=== PATIENT | male | born 1940 | race Caucasian/White ===

== ENCOUNTER 2022-11-19 12:18 | Inpatient (IN) | payer MEDICARE, SELFPAY ==
[2022-11-19] VITALS (55 sets, daily range): BP systolic 76–104; BP diastolic 48–62; PULSE 80–124; RESP 14–36; TEMP 36.6–37.1; O2SAT 80–100
--- NOTE | ~2022-11-19 | XR_ITS ---
Portable chest x-ray Comparison: 11/19/2022 Clinical History: Pneumonia Findings: Extensive right lung consolidation, especially the right lung apex is again present. There is mild haziness in the left perihilar region. Extensive calcified pleural plaques are again present . Cardiomediastinal silhouette is stable. Bones and soft tissues are unremarkable. Impression: Extensive right lung consolidation, especially right lung apex, as well as mild haziness left perihil ar region. Findings suggest bilateral pneumonia, worst at the right lung apex. Underlying neoplasm ca nnot be completely excluded radiographically. Suspect also pleural plaques are again present. Reviewed, dictated and finalized at location . Impression: Extensive right lung consolidation, especially right lung apex, as well as mild haziness left perihilar region. Findings suggest bilateral pneumonia, worst at the right lung apex. Underlying neoplasm cannot be completely excluded radiogr aphically. Suspect also pleural plaques are again present.
--- NOTE | ~2022-11-19 | US_ITS ---
Renal-Bladder ultrasound Clinical History: Acute kidney injury Technique: Real-time sonographic imaging of the kidneys and urinary bladder was performed. Findings: The right kidney measures 10.4 cm in length and the left kidney measures 12.5 cm. There is no hydronephrosis or renal calculus identified. Renal cortical echogenicity is within normal limits. No renal mass lesion is identified. The urinary bladder is moderately distended at the time of this exam. No intraluminal echoes are iden tified. No abnormal wall thickening is seen. Prostate gland is enlarged. Impression: Unremarkable ultrasound of the kidneys and urinary bladder. Enlarged prostate gland. Reviewed, dictated and finalized at location . Impression: Unremarkable ultrasound of the kidneys and urinary bladder. Enlarged prostate gland.
--- NOTE | ~2022-11-19 | XR_ITS ---
Clinical Indication: Cough, bloody sputum PA and lateral views of the chest: Comparison: None Findings: There is extensive right upper lobe consolidation, especially the right lung apex, compatib le with pneumonia. Calcified pleural plaques are present bilaterally. No pleural effusion. Cardiomedi astinal silhouette is within normal limits. Bones and soft tissues are unremarkable. Impression: Extensive right upper lobe presumed pneumonia. Follow-up to radiographic resolution is advised. Reviewed, dictated and finalized at location . Impression: Extensive right upper lobe presumed pneumonia. Follow-up to radiographic resolu tion is advised.
--- NOTE | ~2022-11-19 | US_ITS ---
Limited Abdominal Sonogram: Real-time sonographic imaging of the right upper quadrant was performed. Clinical History: Abnormal LFTs Findings: The liver appears normal with no evidence of mass lesion or bile duct dilatation. Main por sunny vein demonstrates normal direction of flow. The gallbladder is well distended, and appears normal with no evidence of gallstone or wall thickening. The common bile duct measures 3 mm. The visualize d pancreas, aorta, and IVC are unremarkable. Impression: No significant abnormality seen. Reviewed, dictated and finalized at location . Impression: No significant abnormality seen.
--- NOTE | 2022-11-19 12:34 | ECG_ITS ---
Measurements Intervals [place] Rate: 120 P: 64 ME: 170 QRS: 56 QRSD: 139 T: 5 QT: 328 QTc: 464 Interpretive Statements SINUS TACHYCARDIA RIGHT BUNDLE BRANCH BLOCK BASELINE ARTIFACT- I, II, III, AVL, AVF, V4-V6 ABNORMAL ECG NO PREVIOUS ECG AVAILABLE FOR COMPARISON Electronically Signed On 11-19-2022 13:03:43 CDT by Luiz Alonso D.O.
[2022-11-19] MEDS: SODIUM CHLORIDE 0.9% IV 1,000 ML 999 ML IV CONT ×2 (12:51→14:22)
[2022-11-19 12:57] LABS: Basophils Absolute Auto 0.1 K/mm3 (0.0-0.1); Basophils Percent Auto 0.4 % (0.2-1.2); Eosinophils Percent Auto 0.1 % (0-4.4); Hematocrit 37.3 % (42.0-52.0); Hemoglobin 12.4 g/dL (14.0-18.0); Immature Granulocyte Absolute 0.27 K/mm3 (0.00-0.031); Immature Granulocyte Percent A 1.4 % (0-0.5); Lymphocytes Absolute Auto 1.01 K/mm3 (0.9-3.2); Lymphocytes Percent Auto 5.2 % (18.3-44.2); Mean Corpuscular HGB Conc 33.2 g/dl (32-36); Mean Corpuscular Hemoglobin 28.1 pg (26-34); Mean Corpuscular Volume 84.4 fl (80-100); Mean Platelet Volume 10.7 fl (7.4-10.4); Monocytes Absolute Auto 1.8 K/mm3 (0.1-0.6); Monocytes Percent Auto 9.4 % (2.6-8.5); Neutrophils Absolute Auto 16.1 K/mm3 (1.3-6.7); Neutrophils Percent Auto 83.5 % (45.5-73.1); Platelet Count Result 177 k/mm3 (150-375); Red Blood Count 4.42 M/mm3 (4.6-6.20); Red Cell Distribution Width 14.6 % (11.5-14.5); White Blood Count 19.3 K/mm3 (4.5-10.0)
[2022-11-19 13:10] LABS: Alanine Aminotransferase 30 U/L (6-50); Albumin Level 3.8 g/dL (3.5-5.1); Alkaline Phosphatase 111 U/L (38-126); Anion Gap 8 mmol/L (8-16); Aspartate Amino Transferase 44 U/L (17-59); Bilirubin,Total 1.7 mg/dL (0.2-1.3); Blood Urea Nitrogen 54 mg/dL (9-20); Calcium 8.3 mg/dL (8.4-10.2); Carbon Dioxide 26 mmol/L (22-30); Chloride 99 mmol/L (98-107); Estimated CRCL calculation 31 ml/min; Estimated Glomerular Filt Rate 32; Glucose 130 mg/dL (65-110); Potassium 3.6 mmol/L (3.4-5.0); Sodium 133 mmol/L (137-145)
--- NOTE | 2022-11-19 13:11 | ED.NAVMDI ---
HPI - Nausea/Vomiting/Diarrhea General Chief complaint: Nausea/Vomiting/Diarrhea Stated complaint: Loose Stool Time Seen by Provider: 11/19/22 12:35 History of Present Illness HPI Narrative: Patient is an 82-year-old male who presents ER with multiple issues. Reports over the last week he has been having diarrhea that has been dark in color. Also noticing that time he has been having runny nose with cough. Cough has been stained with blood. He is not on any blood thinners. No fevers or chills or sweats. He started to get dizzy with positional change. Found to be hypotensive upon arrival here. Patient has history of COPD and has been using his nebulizers at home without improvement of his cough and dyspnea. Related Data Home Medications Medication Instructions Recorded Confirmed albuterol sulfate 90 mcg/actuation 2 puff inhalation QID PRN 11/19/22 aerosol inhaler Shortness Of Breath aspirin 81 mg tablet,delayed 81 mg PO DAILY 11/19/22 release atorvastatin 80 mg tablet 80 mg PO HS 11/19/22 fluticasone fur. 100 mcg-umeclid 1 inh inhalation DAILY 11/19/22 62.5 mcg-vilant 25 mcg inhalat.powder (Trelegy Ellipta) furosemide 20 mg tablet 20 mg PO DAILY 11/19/22 levothyroxine 25 mcg capsule 25 mcg PO DAILY 11/19/22 lisinopril 10 mg tablet 10 mg PO DAILY 11/19/22 metoprolol succinate 25 mg 25 mg PO DAILY 11/19/22 tablet,extended release 24 hr Allergies Allergy/AdvReac Type Severity Reaction Status Date / Time No Known Allergies Allergy Mild Verified 11/21/09 11:20 Review of Systems Review of Systems: All systems reviewed & are unremarkable except as noted in HPI and below Constitutional: Constitutional: Denies chills, Reports fatigue and Denies fever(s) ENT: Reports nasal congestion and Reports sore throat Cardiovascular: Cardiovascular: Denies chest pain, Denies rapid heart rate and Denies radiating jaw, neck or arm pain Respiratory: Respiratory: Reports cough, Reports dyspnea and Reports wheezing Gastrointestinal: Gastrointestinal: Denies abdominal pain, Reports diarrhea, Denies nausea and Denies vomiting Neurologic: Denies syncope, Denies focal weakness and Denies numbness PMF Past Medical History Medical History (Updated 11/19/22 @ 16:59 by Noam Ku MD) CAD (coronary atherosclerotic disease) CHF (congestive heart failure) COPD (chronic obstructive pulmonary disease) Hyperlipidemia Hypertension Surgical History Surgical History (Updated 11/19/22 @ 13:30 by Noam Ku MD) S/P CABG x 6 Exam Narrative: GENERAL: Well-appearing, well-nourished, and in no acute distress. HEAD: Normocephalic, atraumatic. EYES: PERRL and EOMI. ENT: Mucous membranes moist. CHEST: Coarse Rales and wheezing bilaterally right greater than left. No respiratory distress. HEART: Tachycardic and regular. Normal peripheral pulses. ABDOMEN: Soft, nontender, nondistended. Hemoccult negative stool. EXTREMITIES: Normal range of motion. No edema. SKIN: Warm, dry, no rash. NEURO: Alert and oriented x3. PSYCH: Normal mood and affect. Course Course Emergency Course: Patient and informed of diagnosis and treatment plan. Appropriate response IV fluid with systolic blood pressure improving to the 100s. He will receive IV antibiotics for his pneumonia. Discussed with hospitalist service who would like him on med telemetry. Vital Signs Vital signs: Vital Signs Temperature 98.7 F 11/19/22 12:30 Pulse Rate 115 H 11/19/22 12:30 Respiratory Rate 36 H 11/19/22 12:30 Blood Pressure 89/50 L 11/19/22 12:30 Pulse Oximetry 92 11/19/22 12:30 Oxygen Delivery Room Air 11/19/22 12:30 Temperature 98.7 F 11/19/22 12:30 Pulse Rate 104 H 11/19/22 13:25 Respiratory Rate 14 11/19/22 13:25 Blood Pressure 89/50 L 11/19/22 12:30 Pulse Oximetry 92 11/19/22 12:30 Oxygen Delivery Room Air 11/19/22 12:30 MDM - Nausea/Vomiting/Diarrhea Lab Data 11/19/22 12:
[2022-11-19 13:12] LABS: INR 1.3
[2022-11-19 13:13] LABS: Partial Thromboplastin Time 34.7 SECONDS (22.3-36.8)
[2022-11-19] MEDS: IPRATROPIUM BR 0.02% INH SOLN 0.5 MG/2.5 ML VIAL INHALATION ×2 (13:31→21:15)
[2022-11-19] MEDS: ALBUTEROL SULFATE NEB 2.5 MG/3 ML INH INHALATION ×2 (13:31→21:16)
--- NOTE | 2022-11-19 17:00 | PM.IMHP ---
H&P: HPI History of Present Illness Date/Time: 11/19/22 17:00 Chief Complaint: Weakness. Narrative: This is a very pleasant 82-year-old male with coronary artery disease status post 6 vessel bypass 2011, hypertension, hyperlipidemia, COPD, benign prostatic hyperplasia who presented to the emergency department via private vehicle from home for evaluation of weakness. Patient provides the following history. He has not been feeling well for the last 4 to 5 days with multiple symptoms to include chills, sweats, generalized malaise, fatigue, decreased appetite, diarrhea, and cough productive of marcus yellow phlegm with small amounts of blood. He has been sleeping a majority of the day and he is really only getting up 3 to 4 times a day with loose stools. made him come in today as he was so weak and she believes he is dehydrated. In fact he does endorse a decrease in urine output and he has noticed that his urine is quite dark. He denies documented fever, sore throat, headache, neck ache, rash, sore throat, vomiting, and dysuria. Blood pressure was as low as 76/50 in the ER but has improved with IV fluids. Pertinent labs included WBC count of 19.3, sodium 133, BUN 54, creatinine 2.00, bilirubin 1.7. Chest x-ray showed extensive right upper lobe presumed pneumonia. In the ED he was given a nebulizer treatment started on ceftriaxone and azithromycin. He is being admitted in this setting for further care. At the time my evaluation he is feeling a bit better simply with the IV fluids. He has not been taking any medications at home aside from those prescribed medications. No sick contacts. Review of Systems Review of Systems: Twelve systems were reviewed and are negative except for as per HPI. [facility]LY [facility] Past Medical History Medical History (Updated 11/19/22 @ 21:20 by Mandy Waterman PA-C) Benign prostatic hyperplasia Chronic obstructive pulmonary disease Congestive heart failure Coronary artery disease Hyperlipidemia Hypertension Hypothyroidism Surgical History Surgical History (Updated 11/19/22 @ 21:13 by Mandy Waterman PA-C) History of bilateral carpal tunnel release History of coronary artery bypass graft x 6 History of open reduction and internal fixation (ORIF) procedure Repair left upper extremity fracture. Family History Family History Other Heart disease Hypertension Social History Social History (Updated 11/19/22 @ 21:14 by Mandy Waterman PA-C) Social History: Surrogate medical decision maker: Janny Zaidi, spouse. Code status: Full code. Smoking status: Former smoker Tobacco type: cigarettes Alcohol intake: former Substance use: never Substance use type: does not use Lack of Transportation: No Lack of Food: Never True Current Housing: I Have Housing Concerned About Future Housing: No Difficulty Paying Gas/Electric Bills: No Difficulty Paying for Meds: No Currently Unemployed: No Education: High School Diploma/GED Difficulty w/ Childcare or Family Care: No Additional living arrangements comments: Lives with in [place]. 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 Spiritual care concerns: No Meds Home Medications and Allergies Home Medications Medication Instructions Recorded Confirmed Type albuterol sulfate 90 mcg/actuation 2 puff inhalation QID PRN 11/19/22 11/19/22 History aerosol inhaler Shortness Of Breath aspirin 81 mg tablet,delayed 81 mg PO DAILY 11/19/22 11/19/22 History release atorvastatin 80 mg tablet 80 mg PO HS 11/19/22 11/19/22 History fluticasone fur. 100 mcg-umeclid 1 inh inhalation DAILY 11/19/22 11/19/22 History 62.5 mcg-vilant 25 mcg inhalat.powder (Trelegy Ellipta) furosemide 20 mg tablet 20 mg PO DAILY 11/19/22 11/19/22 History levothyroxine 25 mcg capsule 25 mcg PO DAILY 11/19/22 11/19/22 History lisinopril 10 mg tablet 10 mg PO
[2022-11-19] MEDS: LACTATED RINGERS 1,000 ML 999 ML IV CONT (18:06)
--- NOTE | 2022-11-19 18:45 | ADMGEN ---
This patient, Anibal Zaidi, was admitted to Medical Room 250-01. Patient/family oriented to hospital policies and general routines including ID bracelet, bed and alarms, visiting hours, pain management, procedures, bathroom and other care routines, personal items, smoking policy, room service/diet, and visiting hours. Information on how to activate the Rapid Response Team has been discussed. Patient/Family are encouraged to report perceived risks to care and to ask questions if they do not understand what they are told or what they should do.
[2022-11-19 19:55] LABS: Influenza A QL RT-PCR Negative (Negative); Influenza B QL RT-PCR Negative (Negative); RSV RNA, RT-PCR Negative (Negative); SARS-CoV-2 RNA PCR Negative
[2022-11-19] MEDS: SODIUM CHLORIDE 0.9% IV 1,000 ML 75 ML IV CONT (19:55)
[2022-11-19 21:53] LABS: Lactic Acid Reflex 1.1 mmol/L (0.7-2.0)
[2022-11-19 22:03] LABS: Anion Gap 6 mmol/L (8-16); Blood Urea Nitrogen 54 mg/dL (9-20); Calcium 7.2 mg/dL (8.4-10.2); Carbon Dioxide 26 mmol/L (22-30); Chloride 103 mmol/L (98-107); Creatine Kinase 203 U/L (55-170); Estimated CRCL calculation 37 ml/min; Estimated Glomerular Filt Rate 39; Glucose 144 mg/dL (65-110); Phosphorus 3.2 mg/dL (2.5-4.5); Potassium 3.2 mmol/L (3.4-5.0); Sodium 135 mmol/L (137-145)
[2022-11-19 22:51] LABS: CRP 32.6 mg/dL (<1.0)
[2022-11-19] MEDS: guaiFENesin 12 HR 600 MG TABCR PO (23:30)
[2022-11-19 23:34] LABS: Creatinine Urine 259.7 mg/dL
[2022-11-19 23:36] LABS: Potassium Urine Random 47.9 meq/L
[2022-11-19 23:58] LABS: Sodium Urine Random < 5 meq/L
[2022-11-20] VITALS (21 sets, daily range): BP systolic 119–126; BP diastolic 61–70; PULSE 91–116; RESP 16–22; TEMP 36.9–37.2; O2SAT 91–96
[2022-11-20 05:53] LABS: Hematocrit 33.1 % (42.0-52.0); Hemoglobin 10.8 g/dL (14.0-18.0); Mean Corpuscular HGB Conc 32.6 g/dl (32-36); Mean Corpuscular Hemoglobin 28.6 pg (26-34); Mean Corpuscular Volume 87.6 fl (80-100); Mean Platelet Volume 10.4 fl (7.4-10.4); Platelet Count Result 159 k/mm3 (150-375); Red Blood Count 3.78 M/mm3 (4.6-6.20); Red Cell Distribution Width 14.7 % (11.5-14.5); White Blood Count 15.6 K/mm3 (4.5-10.0)
[2022-11-20 06:11] LABS: Alanine Aminotransferase 46 U/L (6-50); Albumin Level 2.9 g/dL (3.5-5.1); Alkaline Phosphatase 103 U/L (38-126); Anion Gap 6 mmol/L (8-16); Aspartate Amino Transferase 65 U/L (17-59); Bilirubin,Total 1.2 mg/dL (0.2-1.3); Blood Urea Nitrogen 48 mg/dL (9-20); Calcium 7.1 mg/dL (8.4-10.2); Carbon Dioxide 25 mmol/L (22-30); Chloride 103 mmol/L (98-107); Estimated CRCL calculation 44 ml/min; Estimated Glomerular Filt Rate 49; Glucose 119 mg/dL (65-110); Magnesium 2.5 mg/dL (1.6-2.3); Potassium 3.4 mmol/L (3.4-5.0); Sodium 134 mmol/L (137-145)
[2022-11-20] MEDS: LEVOTHYROXINE SODIUM 25 MCG TABLET PO (06:18)
[2022-11-20 07:14] LABS: Thyroid Stimulating Hormone Reflex 0.338 uIU/mL (0.465-4.68)
[2022-11-20] MEDS: ALBUTEROL SULFATE NEB 2.5 MG/3 ML INH INHALATION ×3 (07:41→21:06)
[2022-11-20] MEDS: IPRATROPIUM BR 0.02% INH SOLN 0.5 MG/2.5 ML VIAL INHALATION ×3 (07:41→21:06)
[2022-11-20] MEDS: FLUTICASONE/UMECLIDIN/VILANTER 100-62.5-25 MCG ELLIPTA 1 PUFF INHALATION (07:44)
[2022-11-20 08:42] LABS: Free T4 Free Thyroxine Reflex 1.68 ng/dL (0.78-2.19)
[2022-11-20] MEDS: METOPROLOL SUCCINATE EXT REL 25 MG TABCR PO (09:03)
[2022-11-20] MEDS: guaiFENesin 12 HR 600 MG TABCR PO ×2 (09:03→22:06)
[2022-11-20] MEDS: ENOXAPARIN 40 MG/0.4 ML SYRINGE SUB-Q (09:04)
[2022-11-20] MEDS: ASPIRIN 81 MG ENTERIC TABLET PO (09:05)
--- NOTE | 2022-11-20 09:07 | PM.IMPN ---
Progress Note: A&P Assessment and Plan (1) Sepsis: Code(s): A41.9 - Sepsis, unspecified organism Status: Acute Assessment and Plan: Present on admission with tachycardia, hypotension SBP 75, and leukocytosis WBC 19.3 and chest x-ray suggestive of pneumonia. Treated with IV fluids. Lactic acid not drawn in the ED. Blood and sputum cultures pending. (2) Right upper lobe pneumonia: Code(s): J18.9 - Pneumonia, unspecified organism Status: Acute Assessment and Plan: Chest x-ray with extensive right upper lobe pneumonia. Patient currently requiring 3L NC Continue azithromycin and ceftriaxone IV, first dose given 11/19/22. continue mucinex BID. Sputum culture pending. urinary antigens and mycoplasma pending. Follow-up to radiographic resolution is advised in 6-8 weeks. (3) Acute kidney injury: Code(s): N17.9 - Acute kidney failure, unspecified Status: Acute Assessment and Plan: Likely due to a combination of hypovolemia from dehydration and hypoperfusion from hypotension. He has continued to take his antihypertensives including lisinopril and furosemide, both which are on hold. Cannot rule out a component of ATN from sepsis. Bladder scan x1 to ensure he is not retaining urine given history of BPH. FENa 0.0% suggesting pre-renal cause. No s/s hypervolemia. Continue with judicious IV fluid rehydration. Renal ultrasound negative. (4) Dehydration: Code(s): E86.0 - Dehydration Status: Acute Assessment and Plan: as above. (5) Benign prostatic hyperplasia: Code(s): N40.0 - Benign prostatic hyperplasia without lower urinary tract symptoms Status: Chronic Assessment and Plan: Not currently on medication. Denies concerns for urinary retention. Bladder scan as detailed above. (6) Chronic obstructive pulmonary disease: Code(s): J44.9 - Chronic obstructive pulmonary disease, unspecified Status: Chronic Assessment and Plan: No wheezing noted on exam to suggest acute exacerbation. Continue scheduled bronchodilators. Resume Trelegy inhaler at discharge. May need home O2 evaluation before discharge if unable to wean from oxygen. (7) Congestive heart failure: Code(s): I50.9 - Heart failure, unspecified Status: Chronic Assessment and Plan: Type unknown. clinically compensated, and fact he is very dry. Monitor volume status closely while hydrating. Check BNP in am. Repeat chest x-ray in am. (8) Coronary artery disease: Qualifiers: Coronary Disease-Associated Artery/Lesion type: [place] artery [place] vs. transplanted heart: [place] heart Associated angina: without angina Qualified Code(s): I25.10 - Atherosclerotic heart disease of [place] coronary artery without angina pectoris Code(s): I25.10 - Atherosclerotic heart disease of [place] coronary artery without angina pectoris Status: Chronic Assessment and Plan: No acute issues. Continue aspirin, beta-kirti (with parameters), and statin. (9) Hypertension: Qualifiers: Hypertension type: primary hypertension Qualified Code(s): I10 - Essential (primary) hypertension Code(s): I10 - Essential (primary) hypertension Status: Chronic Assessment and Plan: Antihypertensives are on hold given hypotension as above. (10) Hypothyroidism: Code(s): E03.9 - Hypothyroidism, unspecified Status: Chronic Assessment and Plan: Continue levothyroxine. TSH 0.338, free T4 1.68, and total T3 Plan CODE STATUS: FULL CODE Disposition: from home. PT/OT consult. Time Spent With Patient Time with patient: 25 - 35 minutes Subjective Date/time seen: 11/20/22 09:07 This is a very pleasant 82-year-old male with coronary artery disease status post 6 vessel bypass 2010, hypertension, hyperlipidemia, COPD, benign prostatic hyperplasia who presented to the emergency depar
[2022-11-20 09:52] LABS: Total Triiodothyronine (T3) 0.56 NG/ML (0.97-1.69)
[2022-11-20] MEDS: SODIUM CHLORIDE 0.9% IV 1,000 ML 75 ML IV CONT (15:03)
[2022-11-20] MEDS: SACCHAROMYCES BOULARDII 250 MG CAPSULE PO (17:13)
[2022-11-20] MEDS: ATORVASTATIN 40 MG TABLET 80 MG PO (22:06)
[2022-11-21] VITALS (25 sets, daily range): BP systolic 102–142; BP diastolic 53–78; PULSE 99–119; RESP 16–24; TEMP 36.5–37.2; O2SAT 90–95
[2022-11-21] MEDS: ALBUTEROL SULFATE NEB 2.5 MG/3 ML INH INHALATION ×4 (02:05→20:22)
[2022-11-21] MEDS: IPRATROPIUM BR 0.02% INH SOLN 0.5 MG/2.5 ML VIAL INHALATION ×4 (02:05→20:23)
[2022-11-21 05:52] LABS: Basophils Absolute Auto 0.1 K/mm3 (0.0-0.1); Basophils Percent Auto 0.7 % (0.2-1.2); Eosinophils Percent Auto 0.2 % (0-4.4); Hematocrit 32.2 % (42.0-52.0); Hemoglobin 10.6 g/dL (14.0-18.0); Immature Granulocyte Absolute 1.53 K/mm3 (0.00-0.031); Immature Granulocyte Percent A 8.6 % (0-0.5); Lymphocytes Absolute Auto 0.77 K/mm3 (0.9-3.2); Lymphocytes Percent Auto 4.3 % (18.3-44.2); Mean Corpuscular HGB Conc 32.9 g/dl (32-36); Mean Corpuscular Hemoglobin 29.3 pg (26-34); Mean Platelet Volume 10.3 fl (7.4-10.4); Monocytes Absolute Auto 1.6 K/mm3 (0.1-0.6); Monocytes Percent Auto 9.2 % (2.6-8.5); Neutrophils Absolute Auto 13.6 K/mm3 (1.3-6.7); Platelet Count Result 180 k/mm3 (150-375); Red Blood Count 3.62 M/mm3 (4.6-6.20); White Blood Count 17.7 K/mm3 (4.5-10.0)
[2022-11-21 06:05] LABS: Alanine Aminotransferase 56 U/L (6-50); Alkaline Phosphatase 121 U/L (38-126); Anion Gap 6 mmol/L (8-16); Aspartate Amino Transferase 66 U/L (17-59); Blood Urea Nitrogen 37 mg/dL (9-20); Calcium 7.5 mg/dL (8.4-10.2); Carbon Dioxide 26 mmol/L (22-30); Chloride 105 mmol/L (98-107); Estimated CRCL calculation 56 ml/min; Estimated Glomerular Filt Rate > 60; Glucose 127 mg/dL (65-110); Magnesium 2.7 mg/dL (1.6-2.3); Potassium 3.8 mmol/L (3.4-5.0); Sodium 137 mmol/L (137-145)
[2022-11-21 06:09] LABS: NT Pro B Type Natriuretic Pept 1620 pg/mL (19.9-100)
[2022-11-21] MEDS: LEVOTHYROXINE SODIUM 25 MCG TABLET PO (06:21)
[2022-11-21] MEDS: SODIUM CHLORIDE 0.9% IV 1,000 ML 75 ML IV CONT (06:24)
--- NOTE | 2022-11-21 08:32 | PM.IMPN ---
Progress Note: A&P Assessment and Plan (1) Sepsis: Code(s): A41.9 - Sepsis, unspecified organism Status: Acute Assessment and Plan: Present on admission with tachycardia, hypotension SBP 75, and leukocytosis WBC 19.3 and chest x-ray suggestive of pneumonia. Treated with IV fluids. Lactic acid not drawn in the ED. Blood cultures negative to date. Sputum culture pending. Still with mild tachycardia and WBC increased from 15 to 17 today. (2) Right upper lobe pneumonia: Code(s): J18.9 - Pneumonia, unspecified organism Status: Acute Assessment and Plan: Chest x-ray with extensive right upper lobe pneumonia. Patient currently requiring 3L NC Treated with azithromycin and ceftriaxone IV, first dose given 11/19/22. Stop Rocephin 11/21/22 as patient has not improved with 48 hour antibiotic and x-ray appears worse. Change to Cefepime 2 grams Q12 hours for pseudomonas coverage. continue mucinex BID. Sputum culture pending. urinary antigens and mycoplasma pending. Chest x-ray shows extensive right lung consolidation and haziness to left perihilar region. (3) Acute kidney injury: Code(s): N17.9 - Acute kidney failure, unspecified Status: Acute Assessment and Plan: Likely due to a combination of hypovolemia from dehydration and hypoperfusion from hypotension. He has continued to take his antihypertensives including lisinopril and furosemide, both which are on hold. Cannot rule out a component of ATN from sepsis. Bladder scan x1 to ensure he is not retaining urine given history of BPH. FENa 0.0% suggesting pre-renal cause. No s/s hypervolemia. Continue with judicious IV fluid rehydration. Renal ultrasound negative. 11/21/22 renal function normalized. Will trial lasix 20 mg IV x1 given respiratory complaints. Resume home furosemide dose tomorrow 11/22. Continue to hold lisinopril for now. (4) Dehydration: Code(s): E86.0 - Dehydration Status: Acute Assessment and Plan: as above. (5) Benign prostatic hyperplasia: Code(s): N40.0 - Benign prostatic hyperplasia without lower urinary tract symptoms Status: Chronic Assessment and Plan: Not currently on medication. Denies concerns for urinary retention. Bladder scan as detailed above. (6) Chronic obstructive pulmonary disease: Code(s): J44.9 - Chronic obstructive pulmonary disease, unspecified Status: Chronic Assessment and Plan: On admission, no wheezing noted on exam to suggest acute exacerbation. Continue scheduled bronchodilators. Resume Trelegy inhaler at discharge. May need home O2 evaluation before discharge if unable to wean from oxygen. 11/21 Patient with wheezing noted today. Add budesonide nebs BID and consider starting systemic steroids if not improved tomorrow. (7) Congestive heart failure: Code(s): I50.9 - Heart failure, unspecified Status: Chronic Assessment and Plan: Type unknown. clinically compensated, and fact he is very dry. Monitor volume status closely while hydrating. BNP 1620 Chest x-ray as above. (8) Coronary artery disease: Qualifiers: Associated angina: without angina Coronary Disease-Associated Artery/Lesion type: [place] artery [place] vs. transplanted heart: [place] heart Qualified Code(s): I25.10 - Atherosclerotic heart disease of [place] coronary artery without angina pectoris Code(s): I25.10 - Atherosclerotic heart disease of [place] coronary artery without angina pectoris Status: Chronic Assessment and Plan: No acute issues. Continue aspirin, beta-kirti (with parameters), and statin. (9) Hypertension: Qualifiers: Hypertension type: primary hypertension Qualified Code(s): I10 - Essential (primary) hypertension Code(s): I10 - Essential (primary) hypertension Status: Chronic Assessment and Plan: Antihypertensives are on hold given hypotension as a
[2022-11-21] MEDS: SACCHAROMYCES BOULARDII 250 MG CAPSULE PO ×2 (08:48→17:05)
[2022-11-21] MEDS: METOPROLOL SUCCINATE EXT REL 25 MG TABCR PO (08:48)
[2022-11-21] MEDS: ENOXAPARIN 40 MG/0.4 ML SYRINGE SUB-Q (08:52)
[2022-11-21] MEDS: guaiFENesin 12 HR 600 MG TABCR PO ×2 (08:52→21:02)
[2022-11-21] MEDS: ASPIRIN 81 MG ENTERIC TABLET PO (08:52)
--- NOTE | 2022-11-21 13:14 | PC.NURSE ---
On 11/21/22, the student, [Pierre Mario], provided care and completed [facility] documentation on this patient. I have reviewed the student's documentation and agree with the findings.
--- NOTE | 2022-11-21 14:17 | PCPTNOTE ---
Attempted to see for physical therapy evaluation, pt had just worked with OT and was currently visiting with family, requested to come back at another time. Will continue to follow.
[2022-11-21] MEDS: CEFEPIME 2 GM/NS 50 ML 2 GM/50 ML BAG IVPB (14:45)
[2022-11-21] MEDS: FUROSEMIDE INJ 40 MG/4 ML VIAL 20 MG IV PUSH (15:58)
[2022-11-21] MEDS: POTASSIUM CHLORIDE 20 MEQ TABLET 40 MEQ PO (15:58)
[2022-11-21] MEDS: BUDESONIDE RESPULE NEB 0.5 MG/2 ML AMP INHALATION (20:22)
[2022-11-21] MEDS: ATORVASTATIN 40 MG TABLET 80 MG PO (21:03)
[2022-11-22] VITALS (25 sets, daily range): BP systolic 123–198; BP diastolic 60–96; PULSE 100–113; RESP 18–20; TEMP 36.5–37.4; O2SAT 91–98
[2022-11-22] MEDS: CEFEPIME 2 GM/NS 50 ML 2 GM/50 ML BAG IVPB ×2 (01:21→12:06)
[2022-11-22] MEDS: IPRATROPIUM BR 0.02% INH SOLN 0.5 MG/2.5 ML VIAL INHALATION ×4 (02:53→21:43)
[2022-11-22] MEDS: ALBUTEROL SULFATE NEB 2.5 MG/3 ML INH INHALATION ×4 (02:53→21:43)
[2022-11-22] MEDS: LEVOTHYROXINE SODIUM 25 MCG TABLET PO (07:04)
[2022-11-22 07:05] LABS: Basophils Percent Auto 0.2 % (0.2-1.2); Eosinophils Absolute Auto 0.1 K/mm3 (0-0.3); Eosinophils Percent Auto 0.3 % (0-4.4); Hemoglobin 10.7 g/dL (14.0-18.0); Immature Granulocyte Absolute 1.58 K/mm3 (0.00-0.031); Immature Granulocyte Percent A 8.7 % (0-0.5); Lymphocytes Absolute Auto 1.35 K/mm3 (0.9-3.2); Lymphocytes Percent Auto 7.5 % (18.3-44.2); Mean Corpuscular HGB Conc 32.4 g/dl (32-36); Mean Corpuscular Hemoglobin 28.9 pg (26-34); Mean Corpuscular Volume 89.2 fl (80-100); Mean Platelet Volume 10.1 fl (7.4-10.4); Monocytes Absolute Auto 1.3 K/mm3 (0.1-0.6); Monocytes Percent Auto 7.3 % (2.6-8.5); Neutrophils Absolute Auto 13.8 K/mm3 (1.3-6.7); Platelet Count Result 216 k/mm3 (150-375); Red Cell Distribution Width 15.2 % (11.5-14.5); White Blood Count 18.1 K/mm3 (4.5-10.0)
[2022-11-22 07:36] LABS: Procalcitonin 2.5 ng/mL
[2022-11-22 07:46] LABS: Alanine Aminotransferase 59 U/L (6-50); Albumin Level 2.9 g/dL (3.5-5.1); Alkaline Phosphatase 138 U/L (38-126); Anion Gap 5 mmol/L (8-16); Aspartate Amino Transferase 70 U/L (17-59); Bilirubin,Total 0.9 mg/dL (0.2-1.3); Blood Urea Nitrogen 31 mg/dL (9-20); Calcium 7.8 mg/dL (8.4-10.2); Carbon Dioxide 27 mmol/L (22-30); Chloride 106 mmol/L (98-107); Estimated CRCL calculation 67 ml/min; Estimated Glomerular Filt Rate > 60; Glucose 124 mg/dL (65-110); Potassium 4.1 mmol/L (3.4-5.0); Sodium 138 mmol/L (137-145)
[2022-11-22 07:59] LABS: CRP 30.1 mg/dL (<1.0)
[2022-11-22] MEDS: BUDESONIDE RESPULE NEB 0.5 MG/2 ML AMP INHALATION ×2 (09:09→21:42)
[2022-11-22] MEDS: SACCHAROMYCES BOULARDII 250 MG CAPSULE PO ×2 (09:21→16:51)
[2022-11-22] MEDS: guaiFENesin 12 HR 600 MG TABCR PO (09:21)
[2022-11-22] MEDS: ENOXAPARIN 40 MG/0.4 ML SYRINGE SUB-Q (09:21)
[2022-11-22] MEDS: ASPIRIN 81 MG ENTERIC TABLET PO (09:21)
[2022-11-22] MEDS: METOPROLOL SUCCINATE EXT REL 25 MG TABCR PO (09:21)
--- NOTE | 2022-11-22 09:41 | PM.IMPN ---
Progress Note: A&P Assessment and Plan (1) Sepsis: Code(s): A41.9 - Sepsis, unspecified organism Status: Acute Assessment and Plan: Present on admission with tachycardia, hypotension SBP 75, and leukocytosis WBC 19.3 and chest x-ray suggestive of pneumonia. Treated with IV fluids. Lactic acid not drawn in the ED. Blood cultures negative to date. Sputum culture pending. Monitor hemodynamics. (2) Right upper lobe pneumonia: Code(s): J18.9 - Pneumonia, unspecified organism Status: Acute Assessment and Plan: Chest x-ray with extensive right upper lobe pneumonia. Patient currently requiring 3L NC Treated with azithromycin and ceftriaxone IV, first dose given 11/19/22. Stopped Rocephin, as patient has not improved with 48 hour antibiotic and x-ray appears worse. Changed to Cefepime 2 grams Q12 hours for pseudomonas coverage, first dose given 11/21/22. continue mucinex BID. Sputum culture pending. urinary antigens and mycoplasma pending. Chest x-ray shows extensive right lung consolidation and haziness to left perihilar region. (3) Acute kidney injury: Code(s): N17.9 - Acute kidney failure, unspecified Status: Acute Assessment and Plan: Likely due to a combination of hypovolemia from dehydration and hypoperfusion from hypotension. He has continued to take his antihypertensives including lisinopril and furosemide, both which are on hold. Cannot rule out a component of ATN from sepsis. Bladder scan x1 to ensure he is not retaining urine given history of BPH. FENa 0.0% suggesting pre-renal cause. No s/s hypervolemia. Continue with judicious IV fluid rehydration. Renal ultrasound negative. 11/21/22 renal function normalized. Will trial lasix 20 mg IV x1 given respiratory complaints. Resume home furosemide dose tomorrow 11/22. Continue to hold lisinopril for now. Stable. (4) Dehydration: Code(s): E86.0 - Dehydration Status: Acute Assessment and Plan: as above. (5) Benign prostatic hyperplasia: Code(s): N40.0 - Benign prostatic hyperplasia without lower urinary tract symptoms Status: Chronic Assessment and Plan: Not currently on medication. Denies concerns for urinary retention. Bladder scan as detailed above. (6) Chronic obstructive pulmonary disease: Code(s): J44.9 - Chronic obstructive pulmonary disease, unspecified Status: Chronic Assessment and Plan: with acute exacerbation secondary to pneumonia. On admission, no wheezing noted therefore systemic steroids deferred. Continue scheduled bronchodilators. Resume Trelegy inhaler at discharge. May need home O2 evaluation before discharge if unable to wean from oxygen. 11/21 Patient with wheezing noted today. Add budesonide nebs BID and consider starting systemic steroids if not improved tomorrow. 11/22 wheezing improved. Continue budesonide nebs. (7) Congestive heart failure: Code(s): I50.9 - Heart failure, unspecified Status: Chronic Assessment and Plan: Type unknown. clinically compensated, and fact he is very dry. Monitor volume status closely while hydrating. BNP 1620 Chest x-ray as above. Lasix 20 mg IV x1 given 11/21 (8) Coronary artery disease: Qualifiers: Associated angina: without angina Coronary Disease-Associated Artery/Lesion type: [place] artery [place] vs. transplanted heart: [place] heart Qualified Code(s): I25.10 - Atherosclerotic heart disease of [place] coronary artery without angina pectoris Code(s): I25.10 - Atherosclerotic heart disease of [place] coronary artery without angina pectoris Status: Chronic Assessment and Plan: No acute issues. Continue aspirin, beta-kirti (with parameters), and statin. (9) Hypertension: Qualifiers: Hypertension type: primary hypertension Qualified Code(s): I10 - Essential (primary) hypertension Code(s): I10 - Essential (primary) hy
[2022-11-22] MEDS: FUROSEMIDE 20 MG TABLET PO (10:45)
--- NOTE | 2022-11-22 11:51 | PC.NURSE ---
On 11/22/22, the student, [Daksha Jaeger], provided care and completed [facility] documentation on this patient. I have reviewed the student's documentation and agree with the findings.
--- NOTE | 2022-11-22 14:40 | PC.NURSE ---
On 11/22/22, the student, [Pierre Mario], provided care and completed [facility] documentation on this patient. I have reviewed the student's documentation and agree with the findings.
[2022-11-22] MEDS: ATORVASTATIN 40 MG TABLET 80 MG PO (20:13)
[2022-11-22] MEDS: guaiFENesin 12 HR 600 MG TABCR 1200 MG PO (20:14)
[2022-11-22 20:46] LABS: Mycoplasma IgM Antibody Titer 0 U/mL (<770)
[2022-11-22 21:30] LABS: Pneumococcal Antigen Urine Not Detected (Not Detected)
[2022-11-23] VITALS (18 sets, daily range): BP systolic 117–152; BP diastolic 51–81; PULSE 89–112; RESP 18–26; TEMP 36.3–37.3; O2SAT 90–96
[2022-11-23] MEDS: IPRATROPIUM BR 0.02% INH SOLN 0.5 MG/2.5 ML VIAL INHALATION ×4 (00:15→15:30)
[2022-11-23] MEDS: CEFEPIME 2 GM/NS 50 ML 2 GM/50 ML BAG IVPB ×2 (00:34→11:37)
[2022-11-23 02:17] LABS: Legionella pneumophila Ag Ur Not Detected (Not Detected)
[2022-11-23] MEDS: ALBUTEROL SULFATE NEB 2.5 MG/3 ML INH INHALATION ×2 (03:03→09:07)
[2022-11-23 05:32] LABS: Alveolar/Arterial O2 Gradient 113.1 mmHg; Base Excess ABG -0.7 mEq/l (+/-2.0); Fractional Inspired Oxygen 32 %; HCO3 ABG 25.1 mEq/l (22.0-26.0); Oxygen Content ABG 14.9 %vol (16.0-22.0); Oxygen Saturation ABG 90.3 % (95.0-100.0); Oxyhemoglobin 89.8 % THb (90.0-100.0); PO2 ABG 61.2 mmHg (80.0-100.0); PO2 FiO2 Ratio Arterial Blood 1.91 %; Total Hemoglobin 11.8 g/dL (12.0-18.0); pH ABG 7.354 (7.350-7.450)
[2022-11-23 05:34] LABS: Device NASAL CANNULA; Modified Allen's Test Pass; Site Drawn RIGHT RADIAL
[2022-11-23 05:45] LABS: Hematocrit 32.8 % (42.0-52.0); Hemoglobin 10.7 g/dL (14.0-18.0); Mean Corpuscular HGB Conc 32.6 g/dl (32-36); Mean Corpuscular Volume 88.9 fl (80-100); Mean Platelet Volume 10.1 fl (7.4-10.4); Platelet Count Result 239 k/mm3 (150-375); Red Blood Count 3.69 M/mm3 (4.6-6.20); Red Cell Distribution Width 15.1 % (11.5-14.5); White Blood Count 15.5 K/mm3 (4.5-10.0)
[2022-11-23 05:50] LABS: Alanine Aminotransferase 60 U/L (6-50); Albumin Level 2.9 g/dL (3.5-5.1); Alkaline Phosphatase 136 U/L (38-126); Anion Gap 3 mmol/L (8-16); Aspartate Amino Transferase 79 U/L (17-59); Bilirubin,Total 0.9 mg/dL (0.2-1.3); Blood Urea Nitrogen 32 mg/dL (9-20); Calcium 7.8 mg/dL (8.4-10.2); Carbon Dioxide 27 mmol/L (22-30); Chloride 106 mmol/L (98-107); Estimated CRCL calculation 67 ml/min; Estimated Glomerular Filt Rate > 60; Glucose 119 mg/dL (65-110); Potassium 4.2 mmol/L (3.4-5.0); Sodium 136 mmol/L (137-145)
[2022-11-23] MEDS: LEVOTHYROXINE SODIUM 25 MCG TABLET PO (07:22)
[2022-11-23 08:04] LABS: Band Neutrophils Percent 8 % (0-6); Metamyelocytes Percent 2 %; Monocytes Absolute Manual 0.62 K/mm3 (0.1-0.90); Monocytes Percent Manual 4 % (3-9); Neutrophils Absolute Manual 12.86 K/mm3 (1.3-6.7); Neutrophils Percent Manual 75 % (46-73); Total Cells Counted 100
[2022-11-23 08:05] LABS: Atypical Lymphocytes Present; Burr Cells 1+ (NORMAL); Platelet Estimate Adequate (Adequate); Schistocytes None Seen (NORMAL)
[2022-11-23] MEDS: FUROSEMIDE 20 MG TABLET PO (08:18)
[2022-11-23] MEDS: ENOXAPARIN 40 MG/0.4 ML SYRINGE SUB-Q (08:18)
[2022-11-23] MEDS: SACCHAROMYCES BOULARDII 250 MG CAPSULE PO ×2 (08:18→17:02)
[2022-11-23] MEDS: ASPIRIN 81 MG ENTERIC TABLET PO (08:18)
[2022-11-23] MEDS: guaiFENesin 12 HR 600 MG TABCR 1200 MG PO ×2 (08:19→20:22)
[2022-11-23] MEDS: METOPROLOL SUCCINATE EXT REL 25 MG TABCR PO (08:20)
[2022-11-23] MEDS: BUDESONIDE RESPULE NEB 0.5 MG/2 ML AMP INHALATION (09:07)
--- NOTE | 2022-11-23 09:36 | PM.IMPN ---
Progress Note: A&P Assessment and Plan (1) Sepsis: Code(s): A41.9 - Sepsis, unspecified organism Status: Acute Assessment and Plan: Present on admission with tachycardia, hypotension SBP 75, and leukocytosis WBC 19.3 and chest x-ray suggestive of pneumonia. Treated with IV fluids. Lactic acid not drawn in the ED. Blood cultures negative to date. Sputum culture pending. Monitor hemodynamics. (2) Right upper lobe pneumonia: Qualifiers: Pneumonia type: due to methicillin-sensitive Staphylococcus aureus (MSSA) Qualified Code(s): J15.211 - Pneumonia due to Methicillin susceptible Staphylococcus aureus Code(s): J18.9 - Pneumonia, unspecified organism Status: Acute Assessment and Plan: Chest x-ray with extensive right upper lobe pneumonia. Patient currently requiring 3L NC Treated with azithromycin and ceftriaxone IV, first dose given 11/19/22. Stopped Rocephin, as patient has not improved with 48 hour antibiotic and x-ray appears worse. Changed to Cefepime 2 grams Q12 hours for pseudomonas coverage, first dose given 11/21/22. continue mucinex BID. Sputum culture staph aureus urinary antigens and mycoplasma negative Chest x-ray shows extensive right lung consolidation and haziness to left perihilar region. WBC 17 to 18 to 15.5. Trend CBC. CRP 30, procalcitonin 2.5 (3) Chronic obstructive pulmonary disease: Code(s): J44.9 - Chronic obstructive pulmonary disease, unspecified Status: Chronic Assessment and Plan: with acute exacerbation secondary to pneumonia. On admission, no wheezing noted therefore systemic steroids deferred. Continue scheduled bronchodilators. Resume Trelegy inhaler at discharge. May need home O2 evaluation before discharge if unable to wean from oxygen. 11/21 Patient with wheezing noted today. Add budesonide nebs BID and consider starting systemic steroids if not improved tomorrow. 11/22 wheezing improved. Continue budesonide nebs. 11/23 patient with notably worsening wheezing bilaterally and dyspnea with position changes. Start systemic steroids, solu-medrol 40 mg IV Q6 hours. Stop budesonide nebs (4) Acute kidney injury: Code(s): N17.9 - Acute kidney failure, unspecified Status: Acute Assessment and Plan: Likely due to a combination of hypovolemia from dehydration and hypoperfusion from hypotension. He has continued to take his antihypertensives including lisinopril and furosemide, both which are on hold. Cannot rule out a component of ATN from sepsis. Bladder scan x1 to ensure he is not retaining urine given history of BPH. FENa 0.0% suggesting pre-renal cause. No s/s hypervolemia. Continue with judicious IV fluid rehydration. Renal ultrasound negative. 11/21/22 renal function normalized. Will trial lasix 20 mg IV x1 given respiratory complaints. 11/23/22 Continue furosemide and lisinopril. Monitor renal function. Stable. (5) Dehydration: Code(s): E86.0 - Dehydration Status: Acute Assessment and Plan: as above. (6) Benign prostatic hyperplasia: Qualifiers: Lower urinary tract symptom presence: symptoms present Lower urinary tract symptom detail: urinary retention Qualified Code(s): N40.1 - Benign prostatic hyperplasia with lower urinary tract symptoms; R33.8 - Other retention of urine Code(s): N40.0 - Benign prostatic hyperplasia without lower urinary tract symptoms Status: Chronic Assessment and Plan: With acute retention. Urinary catheter placed overnight. Start tamsulosin 0.4 mg daily. He will need to follow up outpatient. (7) Acute urinary retention: Code(s): R33.8 - Other retention of urine Status: Acute Assessment and Plan: As above (8) Congestive heart failure: Code(s): I50.9 - Heart failure, unspecified Status: Chronic Assessment and Plan: Type unknown. clinically compensated, and fact he is very dry. M
[2022-11-23] MEDS: methylPREDNISolone SOD SUCC 125 MG VIAL IV PUSH (14:30)
--- NOTE | 2022-11-23 15:29 | PCRCNOTE ---
Window of time for tx
[2022-11-23] MEDS: methylPREDNISolone SOD SUCC 40 MG VIAL IV PUSH (18:04)
[2022-11-23] MEDS: ATORVASTATIN 40 MG TABLET 80 MG PO (20:22)
[2022-11-23] MEDS: TAMSULOSIN HCL 0.4 MG CAPSULE PO (20:23)
[2022-11-24] VITALS (22 sets, daily range): BP systolic 124–143; BP diastolic 50–79; PULSE 67–104; RESP 14–24; TEMP 36.4–36.8; O2SAT 90–100; BMI 31.5
[2022-11-24] MEDS: CEFEPIME 2 GM/NS 50 ML 2 GM/50 ML BAG IVPB ×2 (00:34→11:45)
[2022-11-24] MEDS: methylPREDNISolone SOD SUCC 40 MG VIAL IV PUSH ×4 (00:34→17:26)
[2022-11-24] MEDS: IPRATROPIUM BR 0.02% INH SOLN 0.5 MG/2.5 ML VIAL INHALATION ×5 (05:05→20:09)
[2022-11-24 05:25] LABS: Hematocrit 32.4 % (42.0-52.0); Hemoglobin 10.4 g/dL (14.0-18.0); Mean Corpuscular HGB Conc 32.1 g/dl (32-36); Mean Corpuscular Hemoglobin 28.1 pg (26-34); Mean Corpuscular Volume 87.6 fl (80-100); Mean Platelet Volume 10.4 fl (7.4-10.4); Platelet Count Result 269 k/mm3 (150-375); Red Cell Distribution Width 15.2 % (11.5-14.5); White Blood Count 15.6 K/mm3 (4.5-10.0)
[2022-11-24 05:44] LABS: Alanine Aminotransferase 71 U/L (6-50); Albumin Level 2.8 g/dL (3.5-5.1); Alkaline Phosphatase 157 U/L (38-126); Anion Gap 2 mmol/L (8-16); Aspartate Amino Transferase 86 U/L (17-59); Bilirubin,Total 0.7 mg/dL (0.2-1.3); Blood Urea Nitrogen 33 mg/dL (9-20); Calcium 7.7 mg/dL (8.4-10.2); Carbon Dioxide 30 mmol/L (22-30); Chloride 105 mmol/L (98-107); Estimated CRCL calculation 67 ml/min; Estimated Glomerular Filt Rate > 60; Glucose 156 mg/dL (65-110); Potassium 4.7 mmol/L (3.4-5.0); Sodium 137 mmol/L (137-145)
[2022-11-24 05:47] LABS: Band Neutrophils Percent 6 % (0-6); Monocytes Absolute Manual 0.46 K/mm3 (0.1-0.90); Monocytes Percent Manual 3 % (3-9); Neutrophils Absolute Manual 13.72 K/mm3 (1.3-6.7); Neutrophils Percent Manual 82 % (46-73); Platelet Estimate Adequate (Adequate); Total Cells Counted 100
[2022-11-24 05:48] LABS: Poikilocytosis 1+ (NORMAL)
[2022-11-24 05:57] LABS: CRP 18.7 mg/dL (<1.0)
[2022-11-24 06:05] LABS: Schistocytes None Seen (NORMAL)
[2022-11-24 06:30] LABS: Procalcitonin 1.2 ng/mL
[2022-11-24] MEDS: LEVOTHYROXINE SODIUM 25 MCG TABLET PO (06:53)
[2022-11-24] MEDS: METOPROLOL SUCCINATE EXT REL 25 MG TABCR PO (08:25)
[2022-11-24] MEDS: SACCHAROMYCES BOULARDII 250 MG CAPSULE PO ×2 (08:25→16:38)
[2022-11-24] MEDS: lisinopriL 10 MG TABLET PO (08:25)
[2022-11-24] MEDS: ASPIRIN 81 MG ENTERIC TABLET PO (08:25)
[2022-11-24] MEDS: FUROSEMIDE 20 MG TABLET PO (08:25)
[2022-11-24] MEDS: ENOXAPARIN 40 MG/0.4 ML SYRINGE SUB-Q (08:26)
[2022-11-24] MEDS: guaiFENesin 12 HR 600 MG TABCR 1200 MG PO ×2 (08:26→20:30)
--- NOTE | 2022-11-24 12:20 | P.PNIM_ITS ---
Progress Note: A&P Assessment and Plan (1) Sepsis: Code(s): A41.9 - Sepsis, unspecified organism Status: Acute Assessment and Plan: Present on admission with tachycardia, hypotension SBP 75, and leukocytosis WBC 19.3 and chest x-ray suggestive of pneumonia. * Treated with IV fluids. * Lactic acid not drawn in the ED. * Blood cultures negative to date. Sputum culture with staph aureus and mixed rolando; it is questionable this is truly acute pathogen * Monitor hemodynamics. (2) Right upper lobe pneumonia: Qualifiers: Pneumonia type: due to methicillin-sensitive Staphylococcus aureus (MSSA) Qualified Code(s): J15.211 - Pneumonia due to Methicillin susceptible Staphylococcus aureus Code(s): J18.9 - Pneumonia, unspecified organism Status: Acute Assessment and Plan: Chest x-ray with extensive right upper lobe pneumonia. Patient currently requiring 3L NC * Treated with azithromycin and ceftriaxone IV, first dose given 11/19/22. * 11/21 Stopped Rocephin, as patient has not improved with 48 hour antibiotic and x-ray appears worse. Changed to Cefepime 2 grams Q12 hours for pseudomonas coverage, first dose given 11/21/22. * continue mucinex BID. * Sputum culture staph aureus * urinary antigens and mycoplasma negative * 11/21 Chest x-ray shows extensive right lung consolidation and haziness to left perihilar region. * WBC 17 to 18 to 15.5 to 17 however systemic steroids were initiated 11/23. Trend CBC. * CRP 30 to 18.7, procalcitonin 2.5 to 1.2 * Appears improving on current antibiotic regimen. (3) Chronic obstructive pulmonary disease: Qualifiers: COPD type: unspecified COPD Qualified Code(s): J44.9 - Chronic obstructive pulmonary disease, unspecified Code(s): J44.9 - Chronic obstructive pulmonary disease, unspecified Status: Chronic Assessment and Plan: with acute exacerbation secondary to pneumonia. On admission, no wheezing noted therefore systemic steroids were deferred. * treated with scheduled bronchodilators and continued duonebs Q4 hours * Hold Trelegy inhaler while on scheduled AMINA/JOSE, resume at discharge. * May need home O2 evaluation before discharge if unable to wean from oxygen. * 11/21 Patient with wheezing noted today. Added budesonide nebs BID and 11/22 wheezing improved. Continued budesonide nebs. * 11/23 patient with notably worsening wheezing bilaterally and dyspnea with position changes. Started solu-medrol 40 mg IV Q6 hours. Stopped budesonide nebs. * 11/24/22 improvement in dyspnea, reduced wheezing on auscultation and reported subjective improvement. Continue IV steroids Q6 hours and wean as patient clinically improves. (4) Acute kidney injury: Code(s): N17.9 - Acute kidney failure, unspecified Status: Resolved Assessment and Plan: Likely due to a combination of hypovolemia from dehydration and hypoperfusion from hypotension. He has continued to take his antihypertensives including lisinopril and furosemide, both which are on hold. Cannot rule out a component of ATN from sepsis. * Bladder scan x1 to ensure he is not retaining urine given history of BPH. * FENa 0.0% suggesting pre-renal cause. * No s/s hypervolemia. * Treated with judicious IV fluid rehydration and stopped 11/21. IV lasix 20 mg BID given 11/21. * Renal ultrasound negative. * 11/23/22 Continue furosemide and lisinopril. Monitor renal function. * Stable. (5) Dehydration: Code(s): E86.0 - Dehydration Status: Acute Assessment and Plan: as above. (6) Benign prostatic hyperplas
--- NOTE | 2022-11-24 12:20 | PM.IMPN ---
Progress Note: A&P Assessment and Plan (1) Sepsis: Code(s): A41.9 - Sepsis, unspecified organism Status: Acute Assessment and Plan: Present on admission with tachycardia, hypotension SBP 75, and leukocytosis WBC 19.3 and chest x-ray suggestive of pneumonia. Treated with IV fluids. Lactic acid not drawn in the ED. Blood cultures negative to date. Sputum culture with staph aureus and mixed rolando; it is questionable this is truly acute pathogen Monitor hemodynamics. (2) Right upper lobe pneumonia: Qualifiers: Pneumonia type: due to methicillin-sensitive Staphylococcus aureus (MSSA) Qualified Code(s): J15.211 - Pneumonia due to Methicillin susceptible Staphylococcus aureus Code(s): J18.9 - Pneumonia, unspecified organism Status: Acute Assessment and Plan: Chest x-ray with extensive right upper lobe pneumonia. Patient currently requiring 3L NC Treated with azithromycin and ceftriaxone IV, first dose given 11/19/22. 11/21 Stopped Rocephin, as patient has not improved with 48 hour antibiotic and x-ray appears worse. Changed to Cefepime 2 grams Q12 hours for pseudomonas coverage, first dose given 11/21/22. continue mucinex BID. Sputum culture staph aureus urinary antigens and mycoplasma negative 11/21 Chest x-ray shows extensive right lung consolidation and haziness to left perihilar region. WBC 17 to 18 to 15.5 to 17 however systemic steroids were initiated 11/23. Trend CBC. CRP 30 to 18.7, procalcitonin 2.5 to 1.2 Appears improving on current antibiotic regimen. (3) Chronic obstructive pulmonary disease: Qualifiers: COPD type: unspecified COPD Qualified Code(s): J44.9 - Chronic obstructive pulmonary disease, unspecified Code(s): J44.9 - Chronic obstructive pulmonary disease, unspecified Status: Chronic Assessment and Plan: with acute exacerbation secondary to pneumonia. On admission, no wheezing noted therefore systemic steroids were deferred. treated with scheduled bronchodilators and continued duonebs Q4 hours Hold Trelegy inhaler while on scheduled AMINA/JOSE, resume at discharge. May need home O2 evaluation before discharge if unable to wean from oxygen. 11/21 Patient with wheezing noted today. Added budesonide nebs BID and 11/22 wheezing improved. Continued budesonide nebs. 11/23 patient with notably worsening wheezing bilaterally and dyspnea with position changes. Started solu-medrol 40 mg IV Q6 hours. Stopped budesonide nebs. 11/24/22 improvement in dyspnea, reduced wheezing on auscultation and reported subjective improvement. Continue IV steroids Q6 hours and wean as patient clinically improves. (4) Acute kidney injury: Code(s): N17.9 - Acute kidney failure, unspecified Status: Resolved Assessment and Plan: Likely due to a combination of hypovolemia from dehydration and hypoperfusion from hypotension. He has continued to take his antihypertensives including lisinopril and furosemide, both which are on hold. Cannot rule out a component of ATN from sepsis. Bladder scan x1 to ensure he is not retaining urine given history of BPH. FENa 0.0% suggesting pre-renal cause. No s/s hypervolemia. Treated with judicious IV fluid rehydration and stopped 11/21. IV lasix 20 mg BID given 11/21. Renal ultrasound negative. 11/23/22 Continue furosemide and lisinopril. Monitor renal function. Stable. (5) Dehydration: Code(s): E86.0 - Dehydration Status: Acute Assessment and Plan: as above. (6) Benign prostatic hyperplasia: Qualifiers: Lower urinary tract symptom detail: urinary retention Lower urinary tract symptom presence: symptoms present Qualified Code(s): N40.1 - Benign prostatic hyperplasia with lower urinary tract symptoms; R33.8 - Other retention of urine Code(s): N40.0 - Benign prostatic hyperplasia without lower urinary tract symptoms Status: Chronic Ass
[2022-11-24] MEDS: SALINE 0.65% NAS SOLN 44 ML BTL 1 SPRAY NASAL (17:26)
[2022-11-24] MEDS: ATORVASTATIN 40 MG TABLET 80 MG PO (20:30)
[2022-11-24] MEDS: TAMSULOSIN HCL 0.4 MG CAPSULE PO (20:31)
[2022-11-25] VITALS (25 sets, daily range): BP systolic 125–140; BP diastolic 63–73; PULSE 73–114; RESP 18–24; TEMP 36.4–36.7; O2SAT 94–97
[2022-11-25] MEDS: methylPREDNISolone SOD SUCC 40 MG VIAL IV PUSH ×4 (00:01→17:43)
[2022-11-25] MEDS: CEFEPIME 2 GM/NS 50 ML 2 GM/50 ML BAG IVPB (00:01)
[2022-11-25] MEDS: SALINE 0.65% NAS SOLN 44 ML BTL 1 SPRAY NASAL ×4 (00:01→17:42)
[2022-11-25] MEDS: IPRATROPIUM BR 0.02% INH SOLN 0.5 MG/2.5 ML VIAL INHALATION ×6 (00:15→20:21)
[2022-11-25 06:07] LABS: Hemoglobin 10.8 g/dL (14.0-18.0); Mean Corpuscular HGB Conc 32.7 g/dl (32-36); Mean Corpuscular Volume 88.7 fl (80-100); Mean Platelet Volume 10.1 fl (7.4-10.4); Platelet Count Result 312 k/mm3 (150-375); Red Blood Count 3.72 M/mm3 (4.6-6.20); White Blood Count 18.4 K/mm3 (4.5-10.0)
[2022-11-25 06:23] LABS: Alanine Aminotransferase 93 U/L (6-50); Albumin Level 3.1 g/dL (3.5-5.1); Alkaline Phosphatase 147 U/L (38-126); Anion Gap 4 mmol/L (8-16); Aspartate Amino Transferase 109 U/L (17-59); Bilirubin,Total 0.7 mg/dL (0.2-1.3); Blood Urea Nitrogen 41 mg/dL (9-20); Calcium 8.1 mg/dL (8.4-10.2); Carbon Dioxide 30 mmol/L (22-30); Chloride 102 mmol/L (98-107); Estimated CRCL calculation 62 ml/min; Estimated Glomerular Filt Rate > 60; Glucose 158 mg/dL (65-110); Potassium 4.3 mmol/L (3.4-5.0); Sodium 136 mmol/L (137-145)
[2022-11-25 06:27] LABS: Band Neutrophils Percent 7 % (0-6); Lymphocytes Percent Manual 6 % (18-44); Monocytes Absolute Manual 0.73 K/mm3 (0.1-0.90); Monocytes Percent Manual 4 % (3-9); Neutrophils Absolute Manual 16.56 K/mm3 (1.3-6.7); Neutrophils Percent Manual 83 % (46-73); Total Cells Counted 100
[2022-11-25 06:28] LABS: Platelet Estimate Adequate (Adequate); Schistocytes None Seen (NORMAL)
[2022-11-25] MEDS: LEVOTHYROXINE SODIUM 25 MCG TABLET PO (06:52)
--- NOTE | 2022-11-25 08:39 | P.PNIM_ITS ---
Progress Note: A&P Assessment and Plan (1) Sepsis: Code(s): A41.9 - Sepsis, unspecified organism Status: Resolved Assessment and Plan: Present on admission with tachycardia, hypotension SBP 75, and leukocytosis WBC 19.3 and chest x-ray suggestive of pneumonia. * Treated with IV fluids. * Lactic acid not drawn in the ED. * Blood cultures negative to date. Sputum culture with staph aureus and mixed rolando; it is questionable this is truly acute pathogen * Monitor hemodynamics. * Stable (2) Right upper lobe pneumonia: Qualifiers: Pneumonia type: due to methicillin-sensitive Staphylococcus aureus (MSSA) Qualified Code(s): J15.211 - Pneumonia due to Methicillin susceptible Staphylococcus aureus Code(s): J18.9 - Pneumonia, unspecified organism Status: Acute Assessment and Plan: Chest x-ray with extensive right upper lobe pneumonia. Patient currently requiring 3L NC * Treated with azithromycin and ceftriaxone IV, first dose given 11/19/22. * 11/21 Stopped Rocephin, as patient has not improved with 48 hour antibiotic and x-ray appears worse. Changed to Cefepime 2 grams Q12 hours for pseudomonas coverage, first dose given 11/21/22. * continue mucinex BID. * Sputum culture staph aureus of unclear etiology * urinary antigens and mycoplasma negative * 11/21 Chest x-ray shows extensive right lung consolidation and haziness to left perihilar region. * WBC fluctuant, down to 15.5 after starting cefepime. Up to 18.4 today, however, systemic steroids were initiated 11/23. Trend CBC. * CRP 30 to 18.7, procalcitonin 2.5 to 1.2 suggesting improving pneumonia. * 11/25 Transitioned to oral Levaquin 750 mg Q24 hours x3 days. He completed Azithromycin 11/19- and Cefepime 11/21- (3) Chronic obstructive pulmonary disease: Qualifiers: COPD type: unspecified COPD Qualified Code(s): J44.9 - Chronic obstructive pulmonary disease, unspecified Code(s): J44.9 - Chronic obstructive pulmonary disease, unspecified Status: Chronic Assessment and Plan: with acute exacerbation secondary to pneumonia. On admission, no wheezing noted therefore systemic steroids were deferred. * treated with scheduled bronchodilators and continued duonebs Q4 hours * Hold Trelegy inhaler while on scheduled AMINA/JOSE, resume at discharge. * May need home O2 evaluation before discharge if unable to wean from oxygen. * 11/21 Patient with wheezing noted today. Added budesonide nebs BID and 11/22 wheezing improved. Continued budesonide nebs. * 11/23 patient with notably worsening wheezing bilaterally and dyspnea with position changes. Started solu-medrol 40 mg IV Q6 hours. Stopped budesonide nebs. * 11/24/22 improvement in dyspnea, reduced wheezing on auscultation and reported subjective improvement. Continue IV steroids Q6 hours and wean as patient clinically improves. (4) Acute kidney injury: Code(s): N17.9 - Acute kidney failure, unspecified Status: Resolved Assessment and Plan: Likely due to a combination of hypovolemia from dehydration and hypoperfusion from hypotension. He has continued to take his antihypertensives including lisinopril and furosemide, both which are on hold. Cannot rule out a component of ATN from sepsis. * Bladder scan x1 to ensure he is not retaining urine given history of BPH. * FENa 0.0% suggesting pre-renal cause. * No s/s hypervolemia. * Treated with judicious IV fluid rehydration and stopped 11/21. IV lasix 20 mg BID given 11/21. * Renal ultrasound negative. * 11/23/22 Continue furosemide and lisinopril. Monitor renal function. * Stabl
--- NOTE | 2022-11-25 08:39 | PM.IMPN ---
Progress Note: A&P Assessment and Plan (1) Sepsis: Code(s): A41.9 - Sepsis, unspecified organism Status: Resolved Assessment and Plan: Present on admission with tachycardia, hypotension SBP 75, and leukocytosis WBC 19.3 and chest x-ray suggestive of pneumonia. Treated with IV fluids. Lactic acid not drawn in the ED. Blood cultures negative to date. Sputum culture with staph aureus and mixed rolando; it is questionable this is truly acute pathogen Monitor hemodynamics. Stable (2) Right upper lobe pneumonia: Qualifiers: Pneumonia type: due to methicillin-sensitive Staphylococcus aureus (MSSA) Qualified Code(s): J15.211 - Pneumonia due to Methicillin susceptible Staphylococcus aureus Code(s): J18.9 - Pneumonia, unspecified organism Status: Acute Assessment and Plan: Chest x-ray with extensive right upper lobe pneumonia. Patient currently requiring 3L NC Treated with azithromycin and ceftriaxone IV, first dose given 11/19/22. 11/21 Stopped Rocephin, as patient has not improved with 48 hour antibiotic and x-ray appears worse. Changed to Cefepime 2 grams Q12 hours for pseudomonas coverage, first dose given 11/21/22. continue mucinex BID. Sputum culture staph aureus of unclear etiology urinary antigens and mycoplasma negative 11/21 Chest x-ray shows extensive right lung consolidation and haziness to left perihilar region. WBC fluctuant, down to 15.5 after starting cefepime. Up to 18.4 today, however, systemic steroids were initiated 11/23. Trend CBC. CRP 30 to 18.7, procalcitonin 2.5 to 1.2 suggesting improving pneumonia. 11/25 Transitioned to oral Levaquin 750 mg Q24 hours x3 days. He completed Azithromycin 11/19- and Cefepime 11/21- (3) Chronic obstructive pulmonary disease: Qualifiers: COPD type: unspecified COPD Qualified Code(s): J44.9 - Chronic obstructive pulmonary disease, unspecified Code(s): J44.9 - Chronic obstructive pulmonary disease, unspecified Status: Chronic Assessment and Plan: with acute exacerbation secondary to pneumonia. On admission, no wheezing noted therefore systemic steroids were deferred. treated with scheduled bronchodilators and continued duonebs Q4 hours Hold Trelegy inhaler while on scheduled AMINA/JOSE, resume at discharge. May need home O2 evaluation before discharge if unable to wean from oxygen. 11/21 Patient with wheezing noted today. Added budesonide nebs BID and 11/22 wheezing improved. Continued budesonide nebs. 11/23 patient with notably worsening wheezing bilaterally and dyspnea with position changes. Started solu-medrol 40 mg IV Q6 hours. Stopped budesonide nebs. 11/24/22 improvement in dyspnea, reduced wheezing on auscultation and reported subjective improvement. Continue IV steroids Q6 hours and wean as patient clinically improves. (4) Acute kidney injury: Code(s): N17.9 - Acute kidney failure, unspecified Status: Resolved Assessment and Plan: Likely due to a combination of hypovolemia from dehydration and hypoperfusion from hypotension. He has continued to take his antihypertensives including lisinopril and furosemide, both which are on hold. Cannot rule out a component of ATN from sepsis. Bladder scan x1 to ensure he is not retaining urine given history of BPH. FENa 0.0% suggesting pre-renal cause. No s/s hypervolemia. Treated with judicious IV fluid rehydration and stopped 11/21. IV lasix 20 mg BID given 11/21. Renal ultrasound negative. 11/23/22 Continue furosemide and lisinopril. Monitor renal function. Stable. (5) Dehydration: Code(s): E86.0 - Dehydration Status: Acute Assessment and Plan: as above. (6) Benign prostatic hyperplasia: Qualifiers: Lower urinary tract symptom detail: urinary retention Lower urinary tract symptom presence: symptoms present Qualified Code(s): N40.1 - Benign prostatic hyperplasia with lower
[2022-11-25] MEDS: levoFLOXacin 750 MG TABLET PO (09:34)
[2022-11-25] MEDS: ENOXAPARIN 40 MG/0.4 ML SYRINGE SUB-Q (09:35)
[2022-11-25] MEDS: METOPROLOL SUCCINATE EXT REL 25 MG TABCR PO (09:35)
[2022-11-25] MEDS: PANTOPRAZOLE 40 MG TABLET PO (09:36)
[2022-11-25] MEDS: SACCHAROMYCES BOULARDII 250 MG CAPSULE PO ×2 (09:36→16:51)
[2022-11-25] MEDS: lisinopriL 10 MG TABLET PO (09:36)
[2022-11-25] MEDS: ASPIRIN 81 MG ENTERIC TABLET PO (09:36)
[2022-11-25] MEDS: FUROSEMIDE 20 MG TABLET PO (09:36)
[2022-11-25] MEDS: guaiFENesin 12 HR 600 MG TABCR 1200 MG PO ×2 (09:37→20:59)
[2022-11-25] MEDS: FUROSEMIDE INJ 40 MG/4 ML VIAL IV PUSH ×2 (14:26→17:43)
[2022-11-25] MEDS: ATORVASTATIN 40 MG TABLET 80 MG PO (20:59)
[2022-11-25] MEDS: TAMSULOSIN HCL 0.4 MG CAPSULE PO (20:59)
[2022-11-26] VITALS (20 sets, daily range): BP systolic 97–135; BP diastolic 57–76; PULSE 68–100; RESP 16–20; TEMP 36.2–36.5; O2SAT 90–96
--- NOTE | 2022-11-26 | ECHO_ITS ---
Patient Info Name: Anibal Zaidi Age: 82 years : 1940 Gender: Male Ht: 70 in Wt: 219 lbs BSA: 2.24 m2 HR: 91 bpm BP: 135 / 76 mmHg Heart Rhythm: Sinus Rhythm Technical Quality: Fair Exam Date: 11/26/2022 7:46 AM Exam Location: [facility] Card Pulmonary Patient Status: Inpatient Admit Date: 11/19/2022 Staff Ordering Physician: Yudy Church APRN Station Installation Supervisor: Sara Ivey RDCS Attending Provider: Giuseppe Watson MD Referring Physician: Lynnette BECERRA; Exam Type: CA echo dop color flow w con Study Info Indications R06.00 - Dyspnea, unspecified Complete two-dimensional, color flow and Doppler transthoracic echocardiogram is performed with contrast to opacify the left ventricle and to improve the deliniation of the left ventricle endocardial borders. Contrast/Agitated Saline Contrast/Ag. Saline: Definity Amount: 3.00 ml Administered By: Sara Ivey RDCS Existing IV Access: Yes IV Access Condition: patent with no signs of infiltration Summary 1. Moderate left ventricular enlargement with normal thickness. Overall good contractility of the left ventricle, although there is basal inferior hypokinesis. Ejection fraction is calculated to be 60%. Grade 2 diastolic dysfunction is present. 2. Left atrial chamber dimension is mildly enlarged. 3. No significant valve regurgitation or stenosis. 4. Normal sinus rhythm with bundle branch block. 5. Technically difficult study. IV definity contrast used. Left Ventricle Left ventricular chamber dimension is moderately enlarged. Left ventricular systolic function is normal, estimated at 60-65%. There is no increased left ventricular wall thickness. Left ventricular septal wall motion is normal. The left ventricular diastolic function is grade II diastolic dysfunction. Right Ventricle Right ventricular chamber dimension is normal. Right ventricular systolic function is normal. Left Atria Left atrial chamber dimension is mildly enlarged. Right Atria Right atrial chamber dimension is normal. Aortic Valve The aortic valve is trileaflet. There is mild aortic valve sclerosis. There is no aortic valve stenosis. There is no aortic valve regurgitation. Pulmonic Valve The pulmonic valve is normal. There is no pulmonic valve stenosis. There is no pulmonic regurgitation. Mitral Valve The mitral valve has normal leaflets. There is no mitral valve stenosis. There is no mitral valve regurgitation. Tricuspid Valve The tricuspid valve leaflets are normal. There is no significant tricuspid valve stenosis. There is trace tricuspid valve regurgitation. No pulmonary hypertension, estimated pulmonary arterial systolic pressure is 21 mmHg. Pericardium/Pleural The pericardium appears normal. There is no pericardial effusion. Inferior Vena Cava Normal inferior vena cava with >50% collapse upon inspiration consistent with Empty right atrial pressure, 10 mmHg. Aorta The aortic root size at the sinus of Valsalva is normal. The prox ascending aorta size is normal. Left Ventricular Outflow Tract Name Value Normal LVOT 2D LVOT Diameter 2.03 cm
[2022-11-26] MEDS: SALINE 0.65% NAS SOLN 44 ML BTL 1 SPRAY NASAL ×4 (00:34→17:36)
[2022-11-26] MEDS: methylPREDNISolone SOD SUCC 40 MG VIAL IV PUSH ×3 (00:34→12:09)
[2022-11-26 06:05] LABS: Hemoglobin 10.1 g/dL (14.0-18.0); Mean Corpuscular HGB Conc 32.6 g/dl (32-36); Mean Corpuscular Hemoglobin 27.8 pg (26-34); Mean Corpuscular Volume 85.4 fl (80-100); Mean Platelet Volume 10.2 fl (7.4-10.4); Platelet Count Result 311 k/mm3 (150-375); Red Blood Count 3.63 M/mm3 (4.6-6.20); Red Cell Distribution Width 14.8 % (11.5-14.5); White Blood Count 15.7 K/mm3 (4.5-10.0)
[2022-11-26 06:17] LABS: Alanine Aminotransferase 91 U/L (6-50); Albumin Level 2.8 g/dL (3.5-5.1); Alkaline Phosphatase 115 U/L (38-126); Anion Gap 4 mmol/L (8-16); Aspartate Amino Transferase 77 U/L (17-59); Bilirubin,Total 0.8 mg/dL (0.2-1.3); Blood Urea Nitrogen 44 mg/dL (9-20); Calcium 7.8 mg/dL (8.4-10.2); Carbon Dioxide 29 mmol/L (22-30); Chloride 102 mmol/L (98-107); Estimated CRCL calculation 56 ml/min; Estimated Glomerular Filt Rate > 60; Glucose 148 mg/dL (65-110); Potassium 4.4 mmol/L (3.4-5.0); Sodium 135 mmol/L (137-145)
[2022-11-26 07:12] LABS: Anisocytosis 1+ (NORMAL); Band Neutrophils Percent 4 % (0-6); Hypochromasia 1+ (NORMAL); Lymphocytes Absolute Manual 1.57 K/mm3 (1.1-4.5); Neutrophils Absolute Manual 14.13 K/mm3 (1.3-6.7); Neutrophils Percent Manual 86 % (46-73); Platelet Estimate Adequate (Adequate); Schistocytes None Seen (NORMAL); Total Cells Counted 100
[2022-11-26] MEDS: IPRATROPIUM BR 0.02% INH SOLN 0.5 MG/2.5 ML VIAL INHALATION ×5 (07:15→23:53)
[2022-11-26] MEDS: PERFLUTREN LIPID MICROSPHERES 1.5 ML VIAL DILUTED TO 10 ML TOTAL VOLUME IV PUSH (08:26)
--- NOTE | 2022-11-26 08:26 | IVDEFINITY ---
Prior to administration of IV Definity the patient was educated on the risks and benefits of the imaging enhancing agent including potential adverse side effects. The patient verbalized understanding. Allergies were verified. No exclusion criteria were identified and at least one of the following inclusion criteria were met: 1) physician request, 2) patient technically difficult to image (per the [place] [employer] guidelines of two or more segments not discernable within the apical view), or 3) questionable left ventricular function. ?
[2022-11-26] MEDS: METOPROLOL SUCCINATE EXT REL 25 MG TABCR PO (09:27)
[2022-11-26] MEDS: ENOXAPARIN 40 MG/0.4 ML SYRINGE SUB-Q (09:27)
[2022-11-26] MEDS: ASPIRIN 81 MG ENTERIC TABLET PO (09:27)
[2022-11-26] MEDS: FUROSEMIDE INJ 40 MG/4 ML VIAL IV PUSH (09:27)
[2022-11-26] MEDS: PANTOPRAZOLE 40 MG TABLET PO (09:27)
[2022-11-26] MEDS: guaiFENesin 12 HR 600 MG TABCR 1200 MG PO ×2 (09:27→20:47)
[2022-11-26] MEDS: lisinopriL 10 MG TABLET PO (09:27)
[2022-11-26] MEDS: levoFLOXacin 750 MG TABLET PO (09:27)
[2022-11-26] MEDS: POTASSIUM CHLORIDE 20 MEQ TABLET.ER PO (09:27)
[2022-11-26] MEDS: SACCHAROMYCES BOULARDII 250 MG CAPSULE PO ×2 (09:28→17:35)
--- NOTE | 2022-11-26 09:56 | P.PNIM_ITS ---
Progress Note: A&P Assessment and Plan (1) Sepsis: Code(s): A41.9 - Sepsis, unspecified organism Status: Resolved Assessment and Plan: Present on admission with tachycardia, hypotension SBP 75, and leukocytosis WBC 19.3 and chest x-ray suggestive of pneumonia. * Treated with IV fluids. * Lactic acid not drawn in the ED. * Blood cultures negative to date. Sputum culture with staph aureus and mixed rolando; it is questionable this is truly acute pathogen * Monitor hemodynamics. * Stable (2) Right upper lobe pneumonia: Qualifiers: Pneumonia type: due to methicillin-sensitive Staphylococcus aureus (MSSA) Qualified Code(s): J15.211 - Pneumonia due to Methicillin susceptible Staphylococcus aureus Code(s): J18.9 - Pneumonia, unspecified organism Status: Acute Assessment and Plan: Chest x-ray with extensive right upper lobe pneumonia. Patient currently requiring 3L NC * Treated with azithromycin and ceftriaxone IV, first dose given 11/19/22. * 11/21 Stopped Rocephin, as patient has not improved with 48 hour antibiotic and x-ray appears worse. Changed to Cefepime 2 grams Q12 hours for pseudomonas coverage, first dose given 11/21/22. * continue mucinex BID. * Sputum culture staph aureus of unclear etiology * urinary antigens and mycoplasma negative * 11/21 Chest x-ray shows extensive right lung consolidation and haziness to left perihilar region. * WBC fluctuant, down to 15.5 after starting cefepime. Up to 18.4 today, however, systemic steroids were initiated 11/23. Trend CBC. * CRP 30 to 18.7, procalcitonin 2.5 to 1.2 suggesting improving pneumonia. * 11/25 Transitioned to oral Levaquin 750 mg Q24 hours x3 days. He completed Azithromycin 11/19- and Cefepime 11/21- * Repeat cbc, procalcitonin and crp in the morning. (3) Chronic obstructive pulmonary disease: Qualifiers: COPD type: unspecified COPD Qualified Code(s): J44.9 - Chronic obstructive pulmonary disease, unspecified Code(s): J44.9 - Chronic obstructive pulmonary disease, unspecified Status: Chronic Assessment and Plan: with acute exacerbation secondary to pneumonia. On admission, no wheezing noted therefore systemic steroids were deferred. * treated with scheduled bronchodilators and continued duonebs Q4 hours * Hold Trelegy inhaler while on scheduled AMINA/JOSE, resume at discharge. * May need home O2 evaluation before discharge if unable to wean from oxygen. * 11/21 Patient with wheezing noted today. Added budesonide nebs BID and 11/22 wheezing improved. Continued budesonide nebs. * 11/23 patient with notably worsening wheezing bilaterally and dyspnea with position changes. Started solu-medrol 40 mg IV Q6 hours. Stopped budesonide nebs. * 11/24/22 improvement in dyspnea, reduced wheezing on auscultation and reported subjective improvement. Continue IV steroids Q6 hours and wean as patient clinically improves. * 11/25/22 improving. No wheezing on exam. Transition to prednisone 40 mg PO daily x 5 days, starting tomorrow. * Patient needs home O2 evaluation prior to discharge. (4) Acute kidney injury: Code(s): N17.9 - Acute kidney failure, unspecified Status: Resolved Assessment and Plan: Likely due to a combination of hypovolemia from dehydration and hypoperfusion from hypotension. He has continued to take his antihypertensives including lisinopril and furosemide, both which are on hold. Cannot rule out a component of ATN from sepsis. * Bladder scan x1 to ensure he is not retaining urine given history of BPH. * FENa 0.0% suggesting pre-renal cause. * No s/s hyp
--- NOTE | 2022-11-26 09:56 | PM.IMPN ---
Progress Note: A&P Assessment and Plan (1) Sepsis: Code(s): A41.9 - Sepsis, unspecified organism Status: Resolved Assessment and Plan: Present on admission with tachycardia, hypotension SBP 75, and leukocytosis WBC 19.3 and chest x-ray suggestive of pneumonia. Treated with IV fluids. Lactic acid not drawn in the ED. Blood cultures negative to date. Sputum culture with staph aureus and mixed rolando; it is questionable this is truly acute pathogen Monitor hemodynamics. Stable (2) Right upper lobe pneumonia: Qualifiers: Pneumonia type: due to methicillin-sensitive Staphylococcus aureus (MSSA) Qualified Code(s): J15.211 - Pneumonia due to Methicillin susceptible Staphylococcus aureus Code(s): J18.9 - Pneumonia, unspecified organism Status: Acute Assessment and Plan: Chest x-ray with extensive right upper lobe pneumonia. Patient currently requiring 3L NC Treated with azithromycin and ceftriaxone IV, first dose given 11/19/22. 11/21 Stopped Rocephin, as patient has not improved with 48 hour antibiotic and x-ray appears worse. Changed to Cefepime 2 grams Q12 hours for pseudomonas coverage, first dose given 11/21/22. continue mucinex BID. Sputum culture staph aureus of unclear etiology urinary antigens and mycoplasma negative 11/21 Chest x-ray shows extensive right lung consolidation and haziness to left perihilar region. WBC fluctuant, down to 15.5 after starting cefepime. Up to 18.4 today, however, systemic steroids were initiated 11/23. Trend CBC. CRP 30 to 18.7, procalcitonin 2.5 to 1.2 suggesting improving pneumonia. 11/25 Transitioned to oral Levaquin 750 mg Q24 hours x3 days. He completed Azithromycin 11/19- and Cefepime 11/21- Repeat cbc, procalcitonin and crp in the morning. (3) Chronic obstructive pulmonary disease: Qualifiers: COPD type: unspecified COPD Qualified Code(s): J44.9 - Chronic obstructive pulmonary disease, unspecified Code(s): J44.9 - Chronic obstructive pulmonary disease, unspecified Status: Chronic Assessment and Plan: with acute exacerbation secondary to pneumonia. On admission, no wheezing noted therefore systemic steroids were deferred. treated with scheduled bronchodilators and continued duonebs Q4 hours Hold Trelegy inhaler while on scheduled AMINA/JOSE, resume at discharge. May need home O2 evaluation before discharge if unable to wean from oxygen. 11/21 Patient with wheezing noted today. Added budesonide nebs BID and 11/22 wheezing improved. Continued budesonide nebs. 11/23 patient with notably worsening wheezing bilaterally and dyspnea with position changes. Started solu-medrol 40 mg IV Q6 hours. Stopped budesonide nebs. 11/24/22 improvement in dyspnea, reduced wheezing on auscultation and reported subjective improvement. Continue IV steroids Q6 hours and wean as patient clinically improves. 11/25/22 improving. No wheezing on exam. Transition to prednisone 40 mg PO daily x 5 days, starting tomorrow. Patient needs home O2 evaluation prior to discharge. (4) Acute kidney injury: Code(s): N17.9 - Acute kidney failure, unspecified Status: Resolved Assessment and Plan: Likely due to a combination of hypovolemia from dehydration and hypoperfusion from hypotension. He has continued to take his antihypertensives including lisinopril and furosemide, both which are on hold. Cannot rule out a component of ATN from sepsis. Bladder scan x1 to ensure he is not retaining urine given history of BPH. FENa 0.0% suggesting pre-renal cause. No s/s hypervolemia. Treated with judicious IV fluid rehydration and stopped 11/21. IV lasix 20 mg BID given 11/21. Renal ultrasound negative. 11/23/22 Continue furosemide and lisinopril. Monitor renal function. Stable. Monitor on diuretics. (5) Dehydration: Code(s): E86.0 - Dehydration Status: Resolved Assessment and Plan: as above
--- NOTE | 2022-11-26 11:33 | PCNWS ---
Weekly nutritional screen. Patient is tolerating current regular diet with adequate intake at 75-100%. No weight loss reported. No nutritional needs at this time.
[2022-11-26] MEDS: TAMSULOSIN HCL 0.4 MG CAPSULE PO (20:47)
[2022-11-26] MEDS: ATORVASTATIN 40 MG TABLET 80 MG PO (20:47)
[2022-11-27] VITALS (18 sets, daily range): BP systolic 113–138; BP diastolic 61–72; PULSE 66–112; RESP 18; TEMP 36.5–36.6; O2SAT 89–95
[2022-11-27] MEDS: IPRATROPIUM BR 0.02% INH SOLN 0.5 MG/2.5 ML VIAL INHALATION ×3 (04:39→11:26)
[2022-11-27 05:12] LABS: Hematocrit 31.6 % (42.0-52.0); Hemoglobin 10.1 g/dL (14.0-18.0); Mean Corpuscular Hemoglobin 27.6 pg (26-34); Mean Corpuscular Volume 86.3 fl (80-100); Mean Platelet Volume 10.2 fl (7.4-10.4); Platelet Count Result 306 k/mm3 (150-375); Red Blood Count 3.66 M/mm3 (4.6-6.20); Red Cell Distribution Width 14.9 % (11.5-14.5); White Blood Count 15.9 K/mm3 (4.5-10.0)
[2022-11-27 05:21] LABS: Alanine Aminotransferase 96 U/L (6-50); Albumin Level 2.7 g/dL (3.5-5.1); Alkaline Phosphatase 105 U/L (38-126); Anion Gap 1 mmol/L (8-16); Aspartate Amino Transferase 74 U/L (17-59); Bilirubin,Total 0.8 mg/dL (0.2-1.3); Blood Urea Nitrogen 41 mg/dL (9-20); CRP 3.1 mg/dL (<1.0); Calcium 7.8 mg/dL (8.4-10.2); Carbon Dioxide 36 mmol/L (22-30); Chloride 99 mmol/L (98-107); Estimated CRCL calculation 56 ml/min; Estimated Glomerular Filt Rate > 60; Glucose 116 mg/dL (65-110); Potassium 4.2 mmol/L (3.4-5.0); Sodium 136 mmol/L (137-145)
[2022-11-27 05:36] LABS: Procalcitonin 0.4 ng/mL
[2022-11-27 05:51] LABS: Hepatitis B Surface Antigen Negative (Negative)
[2022-11-27 05:57] LABS: HAV RESULT Negative (Negative); Hepatitis B Core IgM Result Negative (Negative)
[2022-11-27 06:04] LABS: Platelet Estimate Adequate (Adequate)
[2022-11-27 06:05] LABS: Band Neutrophils Percent 6 % (0-6); Lymphocytes Absolute Manual 1.74 K/mm3 (1.1-4.5); Lymphocytes Percent Manual 11 % (18-44); Metamyelocytes Percent 1 %; Monocytes Absolute Manual 1.27 K/mm3 (0.1-0.90); Monocytes Percent Manual 8 % (3-9); Myelocytes Percent 1 %; Neutrophils Absolute Manual 12.56 K/mm3 (1.3-6.7); Neutrophils Percent Manual 73 % (46-73); Schistocytes None Seen (NORMAL); Total Cells Counted 100
[2022-11-27 06:08] LABS: Hepatitis C Virus Antibody Negative (Negative)
[2022-11-27] MEDS: SALINE 0.65% NAS SOLN 44 ML BTL 1 SPRAY NASAL ×2 (06:18→11:47)
[2022-11-27] MEDS: LEVOTHYROXINE SODIUM 25 MCG TABLET PO (06:18)
[2022-11-27] MEDS: POTASSIUM CHLORIDE 20 MEQ TABLET.ER PO (08:19)
[2022-11-27] MEDS: SACCHAROMYCES BOULARDII 250 MG CAPSULE PO (08:19)
[2022-11-27] MEDS: guaiFENesin 12 HR 600 MG TABCR 1200 MG PO (08:19)
[2022-11-27] MEDS: levoFLOXacin 750 MG TABLET PO (08:19)
[2022-11-27] MEDS: PANTOPRAZOLE 40 MG TABLET PO (08:19)
[2022-11-27] MEDS: predniSONE 20 MG TABLET 40 MG PO (08:19)
[2022-11-27] MEDS: lisinopriL 10 MG TABLET PO (08:19)
[2022-11-27] MEDS: FUROSEMIDE INJ 40 MG/4 ML VIAL IV PUSH (08:20)
[2022-11-27] MEDS: ENOXAPARIN 40 MG/0.4 ML SYRINGE SUB-Q (08:20)
[2022-11-27] MEDS: METOPROLOL SUCCINATE EXT REL 25 MG TABCR PO (08:20)
[2022-11-27] MEDS: ASPIRIN 81 MG ENTERIC TABLET PO (08:20)
--- NOTE | 2022-11-27 13:22 | P.PNIM_ITS ---
Progress Note: A&P Assessment and Plan (1) Sepsis: Code(s): A41.9 - Sepsis, unspecified organism Status: Resolved Assessment and Plan: Present on admission with tachycardia, hypotension SBP 75, and leukocytosis WBC 19.3 and chest x-ray suggestive of pneumonia. * Treated with IV fluids. * Lactic acid not drawn in the ED. * Blood cultures negative to date. Sputum culture with staph aureus and mixed rolando; it is questionable this is truly acute pathogen * Monitor hemodynamics. * Stable (2) Right upper lobe pneumonia: Qualifiers: Pneumonia type: due to methicillin-sensitive Staphylococcus aureus (MSSA) Qualified Code(s): J15.211 - Pneumonia due to Methicillin susceptible Staphylococcus aureus Code(s): J18.9 - Pneumonia, unspecified organism Status: Acute Assessment and Plan: Chest x-ray with extensive right upper lobe pneumonia. Patient currently requiring 3L NC * Treated with azithromycin and ceftriaxone IV, first dose given 11/19/22. * 11/21 Stopped Rocephin, as patient has not improved with 48 hour antibiotic and x-ray appears worse. Changed to Cefepime 2 grams Q12 hours for pseudomonas coverage, first dose given 11/21/22. * continue mucinex BID. * Sputum culture staph aureus of unclear etiology * urinary antigens and mycoplasma negative * 11/21 Chest x-ray shows extensive right lung consolidation and haziness to left perihilar region. * WBC fluctuant, down to 15.5 after starting cefepime. Up to 18.4 today, however, systemic steroids were initiated 11/23. Trend CBC. * CRP 30 to 18.7, procalcitonin 2.5 to 1.2 suggesting improving pneumonia. * 11/25 Transitioned to oral Levaquin 750 mg Q24 hours x3 days. He completed Azithromycin 11/19- and Cefepime 11/21- * 11/27 CRP 3.1 and procalcitonin 0.4 (3) Chronic obstructive pulmonary disease: Qualifiers: COPD type: unspecified COPD Qualified Code(s): J44.9 - Chronic obstructive pulmonary disease, unspecified Code(s): J44.9 - Chronic obstructive pulmonary disease, unspecified Status: Chronic Assessment and Plan: with acute exacerbation secondary to pneumonia. On admission, no wheezing noted therefore systemic steroids were deferred. * treated with scheduled bronchodilators and continued duonebs Q4 hours * Hold Trelegy inhaler while on scheduled AMINA/JOSE, resume at discharge. * May need home O2 evaluation before discharge if unable to wean from oxygen. * 11/21 Patient with wheezing noted today. Added budesonide nebs BID and 11/22 wheezing improved. Continued budesonide nebs. * 11/23 patient with notably worsening wheezing bilaterally and dyspnea with position changes. Started solu-medrol 40 mg IV Q6 hours. Stopped budesonide nebs. * 11/24/22 improvement in dyspnea, reduced wheezing on auscultation and reported subjective improvement. Continue IV steroids Q6 hours and wean as patient clinically improves. * 11/25/22 improving. No wheezing on exam. Transition to prednisone 40 mg PO daily x 5 days, starting tomorrow. * 11/27/2022 home O2 eval ordered (4) Acute kidney injury: Code(s): N17.9 - Acute kidney failure, unspecified Status: Resolved Assessment and Plan: Likely due to a combination of hypovolemia from dehydration and hypoperfusion from hypotension. He has continued to take his antihypertensives including lisinopril and furosemide, both which are on hold. Cannot rule out a component of ATN from sepsis. * Bladder scan x1 to ensure he is not retaining urine given history of BPH. * FENa 0.0% ivory
--- NOTE | 2022-11-27 13:22 | PM.IMPN ---
Progress Note: A&P Assessment and Plan (1) Sepsis: Code(s): A41.9 - Sepsis, unspecified organism Status: Resolved Assessment and Plan: Present on admission with tachycardia, hypotension SBP 75, and leukocytosis WBC 19.3 and chest x-ray suggestive of pneumonia. Treated with IV fluids. Lactic acid not drawn in the ED. Blood cultures negative to date. Sputum culture with staph aureus and mixed rolando; it is questionable this is truly acute pathogen Monitor hemodynamics. Stable (2) Right upper lobe pneumonia: Qualifiers: Pneumonia type: due to methicillin-sensitive Staphylococcus aureus (MSSA) Qualified Code(s): J15.211 - Pneumonia due to Methicillin susceptible Staphylococcus aureus Code(s): J18.9 - Pneumonia, unspecified organism Status: Acute Assessment and Plan: Chest x-ray with extensive right upper lobe pneumonia. Patient currently requiring 3L NC Treated with azithromycin and ceftriaxone IV, first dose given 11/19/22. 11/21 Stopped Rocephin, as patient has not improved with 48 hour antibiotic and x-ray appears worse. Changed to Cefepime 2 grams Q12 hours for pseudomonas coverage, first dose given 11/21/22. continue mucinex BID. Sputum culture staph aureus of unclear etiology urinary antigens and mycoplasma negative 11/21 Chest x-ray shows extensive right lung consolidation and haziness to left perihilar region. WBC fluctuant, down to 15.5 after starting cefepime. Up to 18.4 today, however, systemic steroids were initiated 11/23. Trend CBC. CRP 30 to 18.7, procalcitonin 2.5 to 1.2 suggesting improving pneumonia. 11/25 Transitioned to oral Levaquin 750 mg Q24 hours x3 days. He completed Azithromycin 11/19- and Cefepime 11/21- 11/27 CRP 3.1 and procalcitonin 0.4 (3) Chronic obstructive pulmonary disease: Qualifiers: COPD type: unspecified COPD Qualified Code(s): J44.9 - Chronic obstructive pulmonary disease, unspecified Code(s): J44.9 - Chronic obstructive pulmonary disease, unspecified Status: Chronic Assessment and Plan: with acute exacerbation secondary to pneumonia. On admission, no wheezing noted therefore systemic steroids were deferred. treated with scheduled bronchodilators and continued duonebs Q4 hours Hold Trelegy inhaler while on scheduled AMINA/JOSE, resume at discharge. May need home O2 evaluation before discharge if unable to wean from oxygen. 11/21 Patient with wheezing noted today. Added budesonide nebs BID and 11/22 wheezing improved. Continued budesonide nebs. 11/23 patient with notably worsening wheezing bilaterally and dyspnea with position changes. Started solu-medrol 40 mg IV Q6 hours. Stopped budesonide nebs. 11/24/22 improvement in dyspnea, reduced wheezing on auscultation and reported subjective improvement. Continue IV steroids Q6 hours and wean as patient clinically improves. 11/25/22 improving. No wheezing on exam. Transition to prednisone 40 mg PO daily x 5 days, starting tomorrow. 11/27/2022 home O2 eval ordered (4) Acute kidney injury: Code(s): N17.9 - Acute kidney failure, unspecified Status: Resolved Assessment and Plan: Likely due to a combination of hypovolemia from dehydration and hypoperfusion from hypotension. He has continued to take his antihypertensives including lisinopril and furosemide, both which are on hold. Cannot rule out a component of ATN from sepsis. Bladder scan x1 to ensure he is not retaining urine given history of BPH. FENa 0.0% suggesting pre-renal cause. No s/s hypervolemia. Treated with judicious IV fluid rehydration and stopped 11/21. IV lasix 20 mg BID given 11/21. Renal ultrasound negative. 11/23/22 Continue furosemide and lisinopril. Monitor renal function. Stable. Monitor on diuretics. (5) Dehydration: Code(s): E86.0 - Dehydration Status: Resolved Assessment and Plan: as above.
--- NOTE | 2022-11-27 15:11 | PCRCNOTE ---
HOME O2 EVAL COMPLETE, NO REQUIREMENTS
--- NOTE | 2022-11-27 15:19 | P.DS_ITS ---
DS: Admitting Diagnosis Discharge Date 11/27/22 Admitting Diagnosis pneumonia, COPD exacerbation DS: Discharge Diagnosis Discharge Diagnosis (1) Sepsis: Code(s): A41.9 - Sepsis, unspecified organism Status: Resolved Assessment and Plan: Present on admission with tachycardia, hypotension SBP 75, and leukocytosis WBC 19.3 and chest x-ray suggestive of pneumonia. * Treated with IV fluids. * Lactic acid not drawn in the ED. * Blood cultures negative to date. Sputum culture with staph aureus and mixed rolando; it is questionable this is truly acute pathogen * Monitor hemodynamics. * Stable (2) Right upper lobe pneumonia: Qualifiers: Pneumonia type: due to methicillin-sensitive Staphylococcus aureus (MSSA) Qualified Code(s): J15.211 - Pneumonia due to Methicillin susceptible Staphylococcus aureus Code(s): J18.9 - Pneumonia, unspecified organism Status: Acute Assessment and Plan: Chest x-ray with extensive right upper lobe pneumonia. Patient currently requiring 3L NC * Treated with azithromycin and ceftriaxone IV, first dose given 11/19/22. * 11/21 Stopped Rocephin, as patient has not improved with 48 hour antibiotic and x-ray appears worse. Changed to Cefepime 2 grams Q12 hours for pseudomonas coverage, first dose given 11/21/22. * continue mucinex BID. * Sputum culture staph aureus of unclear etiology * urinary antigens and mycoplasma negative * 11/21 Chest x-ray shows extensive right lung consolidation and haziness to left perihilar region. * WBC fluctuant, down to 15.5 after starting cefepime. Up to 18.4 today, however, systemic steroids were initiated 11/23. Trend CBC. * CRP 30 to 18.7, procalcitonin 2.5 to 1.2 suggesting improving pneumonia. * 11/25 Transitioned to oral Levaquin 750 mg Q24 hours x3 days. He completed Azithromycin 11/19- and Cefepime 11/21- * 11/27 CRP 3.1 and procalcitonin 0.4 (3) Chronic obstructive pulmonary disease: Qualifiers: COPD type: unspecified COPD Qualified Code(s): J44.9 - Chronic obstructive pulmonary disease, unspecified Code(s): J44.9 - Chronic obstructive pulmonary disease, unspecified Status: Chronic Assessment and Plan: with acute exacerbation secondary to pneumonia. On admission, no wheezing noted therefore systemic steroids were deferred. * treated with scheduled bronchodilators and continued duonebs Q4 hours * Hold Trelegy inhaler while on scheduled AMINA/JOSE, resume at discharge. * May need home O2 evaluation before discharge if unable to wean from oxygen. * 11/21 Patient with wheezing noted today. Added budesonide nebs BID and 11/22 wheezing improved. Continued budesonide nebs. * 11/23 patient with notably worsening wheezing bilaterally and dyspnea with position changes. Started solu-medrol 40 mg IV Q6 hours. Stopped budesonide nebs. * 11/24/22 improvement in dyspnea, reduced wheezing on auscultation and reported subjective improvement. Continue IV steroids Q6 hours and wean as patient clinically improves. * 11/25/22 improving. No wheezing on exam. Transition to prednisone 40 mg PO daily x 5 days, starting tomorrow. * 11/27/2022 home O2 eval ordered and patient passed evaluation. (4) Acute kidney injury: Code(s): N17.9 - Acute kidney failure, unspecified Status: Resolved Assessment and Plan: Likely due to a combination of hypovolemia from dehydration and hypoperfusion from hypotension. He has continued to take his antihypertensives including lisinopril and furosemide, both which are on
--- NOTE | 2022-11-27 15:19 | PM.DS ---
DS: Admitting Diagnosis Discharge Date 11/27/22 Admitting Diagnosis pneumonia, COPD exacerbation DS: Discharge Diagnosis Discharge Diagnosis (1) Sepsis: Code(s): A41.9 - Sepsis, unspecified organism Status: Resolved Assessment and Plan: Present on admission with tachycardia, hypotension SBP 75, and leukocytosis WBC 19.3 and chest x-ray suggestive of pneumonia. Treated with IV fluids. Lactic acid not drawn in the ED. Blood cultures negative to date. Sputum culture with staph aureus and mixed rolando; it is questionable this is truly acute pathogen Monitor hemodynamics. Stable (2) Right upper lobe pneumonia: Qualifiers: Pneumonia type: due to methicillin-sensitive Staphylococcus aureus (MSSA) Qualified Code(s): J15.211 - Pneumonia due to Methicillin susceptible Staphylococcus aureus Code(s): J18.9 - Pneumonia, unspecified organism Status: Acute Assessment and Plan: Chest x-ray with extensive right upper lobe pneumonia. Patient currently requiring 3L NC Treated with azithromycin and ceftriaxone IV, first dose given 11/19/22. 11/21 Stopped Rocephin, as patient has not improved with 48 hour antibiotic and x-ray appears worse. Changed to Cefepime 2 grams Q12 hours for pseudomonas coverage, first dose given 11/21/22. continue mucinex BID. Sputum culture staph aureus of unclear etiology urinary antigens and mycoplasma negative 11/21 Chest x-ray shows extensive right lung consolidation and haziness to left perihilar region. WBC fluctuant, down to 15.5 after starting cefepime. Up to 18.4 today, however, systemic steroids were initiated 11/23. Trend CBC. CRP 30 to 18.7, procalcitonin 2.5 to 1.2 suggesting improving pneumonia. 11/25 Transitioned to oral Levaquin 750 mg Q24 hours x3 days. He completed Azithromycin 11/19- and Cefepime 11/21- 11/27 CRP 3.1 and procalcitonin 0.4 (3) Chronic obstructive pulmonary disease: Qualifiers: COPD type: unspecified COPD Qualified Code(s): J44.9 - Chronic obstructive pulmonary disease, unspecified Code(s): J44.9 - Chronic obstructive pulmonary disease, unspecified Status: Chronic Assessment and Plan: with acute exacerbation secondary to pneumonia. On admission, no wheezing noted therefore systemic steroids were deferred. treated with scheduled bronchodilators and continued duonebs Q4 hours Hold Trelegy inhaler while on scheduled AMINA/JOSE, resume at discharge. May need home O2 evaluation before discharge if unable to wean from oxygen. 11/21 Patient with wheezing noted today. Added budesonide nebs BID and 11/22 wheezing improved. Continued budesonide nebs. 11/23 patient with notably worsening wheezing bilaterally and dyspnea with position changes. Started solu-medrol 40 mg IV Q6 hours. Stopped budesonide nebs. 11/24/22 improvement in dyspnea, reduced wheezing on auscultation and reported subjective improvement. Continue IV steroids Q6 hours and wean as patient clinically improves. 11/25/22 improving. No wheezing on exam. Transition to prednisone 40 mg PO daily x 5 days, starting tomorrow. 11/27/2022 home O2 eval ordered and patient passed evaluation. (4) Acute kidney injury: Code(s): N17.9 - Acute kidney failure, unspecified Status: Resolved Assessment and Plan: Likely due to a combination of hypovolemia from dehydration and hypoperfusion from hypotension. He has continued to take his antihypertensives including lisinopril and furosemide, both which are on hold. Cannot rule out a component of ATN from sepsis. Bladder scan x1 to ensure he is not retaining urine given history of BPH. FENa 0.0% suggesting pre-renal cause. No s/s hypervolemia. Treated with judicious IV fluid rehydration and stopped 11/21. IV lasix 20 mg BID given 11/21. Renal ultrasound negative. 11/23/22 Continue furosemide and lisinopril. Monitor renal function. Stable. Monitor on diu
[2022-11-29 09:32] LABS: Chloride Rand Ur <20 mmol/L (32-290); Creatinine Random Urine 222 mg/dL (20-320)
== END 2022-11-27 16:30 | disposition home or self-care (01) | DRG 871 ==
LOC: ANHED 16:58 → ANH2MED 17:59
PROVIDERS: General Practice; Nurse Practitioner Family; Physician Assistant; Admitting Provider Family Medicine; Emergency Provider Emergency Medicine; PCP Internal Medicine; Visit Provider Internal Medicine Critical Care Medicine
DX: A41.9 Sepsis, unspecified organism (principal); I50.33 Acute on chronic diastolic (congestive) heart failure; J15.211 Pneumonia due to Methicillin susceptible Staphylococcus aureus; J44.0 Chronic obstructive pulmonary disease with (acute) lower respiratory infection; N17.9 Acute kidney failure, unspecified; J44.1 Chronic obstructive pulmonary disease with (acute) exacerbation; I11.0 Hypertensive heart disease with heart failure; I25.10 Atherosclerotic heart disease of native coronary artery without angina pectoris; Z20.822 Contact with and (suspected) exposure to COVID-19; N40.1 Benign prostatic hyperplasia with lower urinary tract symptoms; R33.8 Other retention of urine; E78.5 Hyperlipidemia, unspecified; E86.0 Dehydration; E03.9 Hypothyroidism, unspecified; K76.1 Chronic passive congestion of liver; Z95.1 Presence of aortocoronary bypass graft
CPT/HCPCS: 36415; 36600; 71045; 71046; 76705; 76775; 80048; 80053; 80074; 82436; 82550; 82570; 82805; 83605; 83735; 83880; 84100; 84133; 84145; 84300; 84439; 84443; 84480; 85025; 85027; 85610; 85730; 86140; 86738; 87040; 87070; 87077; 87081; 87186; 87205; 87449; 87637; 87899; 93005; 94618; 94640; 94667; 94668; 96361; 96365; 97110; 97116; 97161; 97165; 97530; 97535; 99285; A9270; C8929; G0378; J0456; J0692; J0696; J1650; J1940; J2920; J2930; J7030; J7120; J7512; Q9957

== ENCOUNTER 2022-12-07 01:45 | Inpatient (IN) | payer MEDICARE, SELFPAY ==
[2022-12-07] VITALS (17 sets, daily range): BP systolic 91–143; BP diastolic 48–81; PULSE 71–109; RESP 18–31; TEMP 36.2–37.1; O2SAT 90–100; BMI 32.3
--- NOTE | ~2022-12-07 | CT_ITS ---
EXAMINATION: CT diagnostic chest wo con DATE: 12/07/2022 20:09 INDICATION: Abnormal chest x-ray TECHNIQUE: Computed tomography (CT) of the chest was performed with 100 mL Omnipaque-350 intravenous contrast. Automated exposure control and iterative reconstruction technique were employed. The dose-l ength product was 408.12 mGy-cm. COMPARISON: X-ray chest, same date and 11/19/2022. FINDINGS: CHEST: Thoracic aorta: No significant dilation. Moderate aortic calcifications. Lung parenchyma and airways: Chronic scarring/fibrosis with bronchiectasis in the right upper lung. Thoracic inlet, axillae and chest wall: No thyroid or soft tissue mass. No axillary lymphadenopathy. Intact sternotomy wires. Mediastinum: No mass or lymphadenopathy. Heart and pericardium: Mitral and aortic valve calcifications. Normal heart size. No pericardial effu jose alfredo. Coronary artery calcifications: Moderate.. Pleura: Calcified pleural plaques. No pleural effusion.. Upper abdomen: No significant finding. Thoracic bones: Severe anterior wedge deformity at T6, stable since 11/19/2022. No other acute osseous finding in the chest. IMPRESSION: No acute thoracic process detected. Chronic right upper lung scarring/fibrosis. Asbestos-related pleu ral disease. Reviewed, dictated and finalized at location K. IMPRESSION: No acute thoracic process detected. Chronic right upper lung scarring/fibrosis. Asbestos-related pleural disease.
--- NOTE | ~2022-12-07 | XR_ITS ---
XR chest 2V DATE: 12/07/2022 02:25 INDICATION: Shortness of breath. Recent pneumonia. TECHNIQUE: AP and lateral views on December 07, 2022, [id number] hours COMPARISON: November 21, 2022 portable AP chest at 0533 hours FINDINGS: There is been considerable improvement of extensive right lung, several left lung infiltrat e since since 11/21/2022. There may be mild residual infiltrate in the right upper lung field. Extensive bilateral calcified pleural plaques consistent with prior asbestos exposure. Status post sternotomy. Heart size appears within normal range. There is thoracic aortic calcificatio n. There is osteopenia. Moderate the severe anterior wedge compression fracture of a midthoracic vertebr al body. IMPRESSION: Considerable improvement of bilateral infiltrates since 11/21/2022 mild residual right upp er anomaly apical infiltrate likely persists Reviewed, dictated and finalized at location A. IMPRESSION: Considerable improvement of bilateral infiltrates since 11/21/2022 m ild residual right upper anomaly apical infiltrate likely persists
--- NOTE | 2022-12-07 01:53 | ECG_ITS ---
Measurements Intervals [place] Rate: 98 P: 66 [place]: 162 QRS: 71 QRSD: 135 T: 21 QT: 351 QTc: 450 Interpretive Statements SINUS RHYTHM BASELINE ARTIFACT LOW-VOLTAGE QRS IN LIMB LEADS RIGHT BUNDLE BRANCH BLOCK ABNORMAL ECG COMPARED TO ECG 11/19/2022 12:39:42 HEART RATE HAS DECREASED Electronically Signed On 12-07-2022 15:24:11 CDT by Jean Yeh M.D.
[2022-12-07 02:12] LABS: Basophils Percent Auto 0.1 % (0.2-1.2); Eosinophils Absolute Auto 0.2 K/mm3 (0-0.3); Eosinophils Percent Auto 1.9 % (0-4.4); Hematocrit 29.9 % (42.0-52.0); Hemoglobin 9.7 g/dL (14.0-18.0); Immature Granulocyte Absolute 0.13 K/mm3 (0.00-0.031); Immature Granulocyte Percent A 1.4 % (0-0.5); Lymphocytes Absolute Auto 1.78 K/mm3 (0.9-3.2); Lymphocytes Percent Auto 19.8 % (18.3-44.2); Mean Corpuscular HGB Conc 32.4 g/dl (32-36); Mean Corpuscular Volume 89.3 fl (80-100); Monocytes Absolute Auto 0.8 K/mm3 (0.1-0.6); Monocytes Percent Auto 8.3 % (2.6-8.5); Neutrophils Absolute Auto 6.2 K/mm3 (1.3-6.7); Neutrophils Percent Auto 68.5 % (45.5-73.1); Platelet Count Result 169 k/mm3 (150-375); Red Blood Count 3.35 M/mm3 (4.6-6.20); Red Cell Distribution Width 15.3 % (11.5-14.5)
[2022-12-07 02:28] LABS: Alanine Aminotransferase 36 U/L (6-50); Albumin Level 3.1 g/dL (3.5-5.1); Alkaline Phosphatase 135 U/L (38-126); Anion Gap 6 mmol/L (8-16); Aspartate Amino Transferase 30 U/L (17-59); Bilirubin,Total 0.6 mg/dL (0.2-1.3); Blood Urea Nitrogen 31 mg/dL (9-20); Calcium 7.5 mg/dL (8.4-10.2); Carbon Dioxide 27 mmol/L (22-30); Chloride 100 mmol/L (98-107); Estimated CRCL calculation 58 ml/min; Estimated Glomerular Filt Rate > 60; Glucose 111 mg/dL (65-110); Sodium 133 mmol/L (137-145)
[2022-12-07 02:41] LABS: NT Pro B Type Natriuretic Pept 198 pg/mL (19.9-100); Troponin I < 0.012 ng/mL (0.000-0.034)
[2022-12-07 02:46] LABS: INR 1.1; Prothrombin Time 14.2 Seconds (11.1-14.7)
[2022-12-07 02:47] LABS: Partial Thromboplastin Time 28.3 SECONDS (22.3-36.8)
--- NOTE | 2022-12-07 03:40 | ED.GENADULT ---
HPI - General Adult General Chief complaint: Shortness of Breath/Dyspnea Stated complaint: sob, edema History of Present Illness HPI narrative: This is an 82-year-old male with history of COPD, diastolic heart failure and recent discharge from hospital after a period of pneumonia with sepsis presenting ED with shortness of breath and lower extremity edema. After the patient was discharged he saw his cadmium burner increased his Lasix from 20 mg to 40 mg per day. Despite that the patient has had significant pitting edema of the lower extremities and swelling of his abdomen. Now he is having shortness of breath. He denies fever, chills, chest pain, productive cough. Patient has BPH and sometimes has difficulty urinating but denies other urinary symptoms. Related Data Home Medications Medication Instructions Recorded Confirmed albuterol sulfate 90 mcg/actuation 2 puff inhalation QID PRN 11/19/22 11/19/22 aerosol inhaler Shortness Of Breath aspirin 81 mg tablet,delayed 81 mg PO DAILY 11/19/22 11/19/22 release atorvastatin 80 mg tablet 80 mg PO HS 11/19/22 11/19/22 fluticasone fur. 100 mcg-umeclid 1 inh inhalation DAILY 11/19/22 11/19/22 62.5 mcg-vilant 25 mcg inhalat.powder (Trelegy Ellipta) furosemide 20 mg tablet 20 mg PO DAILY 11/19/22 11/19/22 levothyroxine 25 mcg capsule 25 mcg PO DAILY 11/19/22 11/19/22 lisinopril 10 mg tablet 10 mg PO DAILY 11/19/22 11/19/22 metoprolol succinate 25 mg 25 mg PO DAILY 11/19/22 11/19/22 tablet,extended release 24 hr Allergies Allergy/AdvReac Type Severity Reaction Status Date / Time No Known Allergies Allergy Mild Verified 11/21/09 11:20 [facility] Past Medical History Medical History Benign prostatic hyperplasia Chronic obstructive pulmonary disease Congestive heart failure Coronary artery disease Hyperlipidemia Hypertension Hypothyroidism Surgical History Surgical History History of bilateral carpal tunnel release History of coronary artery bypass graft x 6 History of open reduction and internal fixation (ORIF) procedure Repair left upper extremity fracture. Family History Family History Other Heart disease Hypertension Social History Social History Social History: Surrogate medical decision maker: Janny Zaidi, spouse. Code status: Full code. Smoking status: Former smoker Tobacco type: cigarettes Alcohol intake: former Substance use: never Substance use type: does not use Lack of Transportation: No Lack of Food: Never True Current Housing: I Have Housing Concerned About Future Housing: No Difficulty Paying Gas/Electric Bills: No Difficulty Paying for Meds: No Currently Unemployed: No Education: High School Diploma/GED Difficulty w/ Childcare or Family Care: No Additional living arrangements comments: Lives with in [place]. 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 Spiritual care concerns: No Exam Narrative: APPEARANCE: patient appears uncomfortable Head: atraumatic. EYES: EOMI, NOSE: Atraumatic NECK: Trachea midline RESPIRATORY: No increased rate of breathing scattered crackles CARDIOVASCULAR: RRR, pitting edema of the lower extremities with edema up the patient's abdomen ABDOMINAL: abdomen is distended but nontender, no guarding or rebound MUSCULOSKELETAl: No obvious deformities NEURO: Alert. Moving 4/4 extremities SKIN:: Warm, dry. Normal color PSYCHIATRIC: Normal affect Course Vital Signs Vital signs: Vital Signs Temperature 97.1 F L 12/07/22 01:49 Pulse Rate 109 H 12/07/22 01:49 Respiratory Rate 28 H 12/07/22 01:49 Blood Pressure 114/67 12/07/22 01:49 Pulse Oximetry 97 12/07/22 01:49 Oxygen Delivery Room Air 12/07/22 01:49 Te
[2022-12-07] MEDS: FUROSEMIDE INJ 40 MG/4 ML VIAL IV PUSH ×2 (03:50→16:39)
[2022-12-07 04:10] LABS: Appearance Urine Clear (Clear); Bacteria Urine None Seen /hpf; Bilirubin Urine Negative (Negative); Blood Urine 3+ (Negative); Color Urine Yellow (Yellow); Glucose Urine UA Negative (Negative); Ketones Urine Negative (Negative); Leukocyte Esterase Ur Trace LEU/UL (Negative); Nitrate Urine Negative (Negative); Non Pathogenic Casts 0-2; Protein Urine Negative (Negative); Specific Grav Ur 1.011 (1.001-1.035); Squamous Epithelial Cell Urine None seen /hpf (Few); Urobilinogen Urine 0.2 mg/dL (<2.0); WBC Urine 0-5 /hpf; pH Urine 5.5 (5.0-9.0)
[2022-12-07 04:30] LABS: Add Urine Microscopic? YES
[2022-12-07 04:53] LABS: Influenza A QL RT-PCR Negative (Negative); Influenza B QL RT-PCR Negative (Negative); RSV RNA, RT-PCR Negative (Negative); SARS-CoV-2 RNA PCR Negative
--- NOTE | 2022-12-07 13:38 | PM.IMHP ---
H&P: HPI History of Present Illness Date/Time: 12/07/22 13:38 Chief Complaint: Leg swelling and shortness of breath Narrative: ?This is an 82-year-old male with history of COPD,? diastolic heart failure and recent discharge from hospital after a period of pneumonia with sepsis presenting ED with shortness of breath and lower extremity edema.? After the patient was discharged he saw his dust collector operator increased his Lasix from 20 mg to 40 mg per day.? Despite that the patient has had significant pitting edema of the lower extremities and swelling of his abdomen.? Now he is having shortness of breath.? He denies fever, chills, chest pain, productive cough.? Patient has BPH and sometimes has difficulty urinating but denies other urinary symptoms. Review of Systems Review of Systems: - CONSTITUTIONAL: Denies weight loss, fever and chills. - HEENT: Denies changes in vision and hearing - RESPIRATORY: Reports sOB and cough. - CV: Denies palpitations and CP. - GI: Denies abdominal pain, nausea, vomiting and diarrhea. - : Denies dysuria and urinary frequency. - MSK: Denies myalgia and joint pain. - SKIN: Denies rash and pruritus. - NEUROLOGICAL: Denies headache and syncope. - PSYCHIATRIC: Denies recent changes in mood. Denies anxiety and depression. [facility] Past Medical History Medical History Benign prostatic hyperplasia Chronic obstructive pulmonary disease Congestive heart failure Coronary artery disease Hyperlipidemia Hypertension Hypothyroidism Surgical History Surgical History History of bilateral carpal tunnel release History of coronary artery bypass graft x 6 History of open reduction and internal fixation (ORIF) procedure Repair left upper extremity fracture. Family History Family History Other Heart disease Hypertension Social History Social History Social History: Surrogate medical decision maker: Janny Zaidi, spouse. Code status: Full code. Smoking packs per day: 1 Smoking cigarettes per day: 20.0 Smoking status: Former smoker Tobacco type: cigarettes Smoking end date: 08/17/11 Alcohol intake: never Substance use: never Substance use type: does not use Lack of Transportation: No Lack of Food: Never True Current Housing: I Have Housing Concerned About Future Housing: No Difficulty Paying Gas/Electric Bills: No Difficulty Paying for Meds: No Currently Unemployed: No Education: High School Diploma/GED Difficulty w/ Childcare or Family Care: No Additional living arrangements comments: Lives with in [place]. 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 Spiritual care concerns: No Meds Home Medications and Allergies Home Medications Medication Instructions Recorded Confirmed Type albuterol sulfate 90 mcg/actuation 2 puff inhalation QID PRN 11/19/22 12/07/22 History aerosol inhaler Shortness Of Breath aspirin 81 mg tablet,delayed 81 mg PO DAILY 11/19/22 12/07/22 History release atorvastatin 80 mg tablet 80 mg PO HS 11/19/22 12/07/22 History fluticasone fur. 100 mcg-umeclid 1 inh inhalation DAILY 11/19/22 12/07/22 History 62.5 mcg-vilant 25 mcg inhalat.powder (Trelegy Ellipta) furosemide 20 mg tablet 20 mg PO DAILY 11/19/22 12/07/22 History levothyroxine 25 mcg capsule 25 mcg PO DAILY 11/19/22 12/07/22 History lisinopril 10 mg tablet 10 mg PO DAILY 11/19/22 12/07/22 History metoprolol succinate 25 mg 25 mg PO DAILY 11/19/22 12/07/22 History tablet,extended release 24 hr levofloxacin 750 mg tablet 750 mg PO DAILY #1 tablet 11/27/22 12/07/22 Rx tamsulosin 0.4 mg capsule 0.4 mg PO HS #30 caps 11/27/22 12/07/22 Rx Allergies Allergy/AdvReac Type Severity Reaction Status Date / Time N
[2022-12-07] MEDS: ATORVASTATIN 40 MG TABLET 80 MG PO (20:50)
[2022-12-07] MEDS: TAMSULOSIN HCL 0.4 MG CAPSULE PO (20:51)
[2022-12-08] VITALS (8 sets, daily range): BP systolic 94–102; BP diastolic 50–58; PULSE 85–102; RESP 18–24; TEMP 36.8–37; O2SAT 90–95
[2022-12-08 05:54] LABS: Alanine Aminotransferase 27 U/L (6-50); Albumin Level 2.2 g/dL (3.5-5.1); Alkaline Phosphatase 81 U/L (38-126); Anion Gap 1 mmol/L (8-16); Aspartate Amino Transferase 23 U/L (17-59); Bilirubin,Total 0.6 mg/dL (0.2-1.3); Blood Urea Nitrogen 31 mg/dL (9-20); Calcium 7.2 mg/dL (8.4-10.2); Carbon Dioxide 31 mmol/L (22-30); Chloride 101 mmol/L (98-107); Estimated CRCL calculation 69 ml/min; Estimated Glomerular Filt Rate > 60; Glucose 96 mg/dL (65-110); Potassium 4.1 mmol/L (3.4-5.0); Sodium 133 mmol/L (137-145)
[2022-12-08] MEDS: LEVOTHYROXINE SODIUM 25 MCG TABLET PO (06:01)
[2022-12-08 06:14] LABS: Basophils Percent Auto 0.3 % (0.2-1.2); Eosinophils Absolute Auto 0.1 K/mm3 (0-0.3); Eosinophils Percent Auto 1.7 % (0-4.4); Hematocrit 22.3 % (42.0-52.0); Hemoglobin 7.2 g/dL (14.0-18.0); Immature Granulocyte Percent A 1.4 % (0-0.5); Lymphocytes Absolute Auto 1.93 K/mm3 (0.9-3.2); Lymphocytes Percent Auto 26.5 % (18.3-44.2); Mean Corpuscular HGB Conc 32.3 g/dl (32-36); Mean Corpuscular Hemoglobin 28.8 pg (26-34); Mean Corpuscular Volume 89.2 fl (80-100); Mean Platelet Volume 9.8 fl (7.4-10.4); Monocytes Absolute Auto 0.6 K/mm3 (0.1-0.6); Monocytes Percent Auto 7.8 % (2.6-8.5); Neutrophils Absolute Auto 4.5 K/mm3 (1.3-6.7); Neutrophils Percent Auto 62.3 % (45.5-73.1); Platelet Count Result 124 k/mm3 (150-375); White Blood Count 7.3 K/mm3 (4.5-10.0)
[2022-12-08] MEDS: FLUTICASONE/UMECLIDIN/VILANTER 100-62.5-25 MCG ELLIPTA 1 PUFF INHALATION (09:08)
[2022-12-08] MEDS: METOPROLOL SUCCINATE EXT REL 25 MG TABCR PO (09:27)
[2022-12-08] MEDS: FUROSEMIDE INJ 40 MG/4 ML VIAL IV PUSH ×2 (09:27→17:34)
[2022-12-08] MEDS: ASPIRIN 81 MG ENTERIC TABLET PO (09:27)
[2022-12-08] MEDS: lisinopriL 10 MG TABLET PO (09:27)
--- NOTE | 2022-12-08 13:55 | PM.IMPN ---
Progress Note: A&P Assessment and Plan (1) Fluid overload: Code(s): E87.70 - Fluid overload, unspecified Status: Acute (2) Acute urinary retention: Code(s): R33.8 - Other retention of urine Status: Acute (3) Hypothyroidism: Qualifiers: Hypothyroidism type: acquired Qualified Code(s): E03.9 - Hypothyroidism, unspecified Code(s): E03.9 - Hypothyroidism, unspecified Status: Chronic (4) Hypertension: Qualifiers: Hypertension type: primary hypertension Qualified Code(s): I10 - Essential (primary) hypertension Code(s): I10 - Essential (primary) hypertension Status: Chronic (5) Chronic obstructive pulmonary disease: Code(s): J44.9 - Chronic obstructive pulmonary disease, unspecified Status: Chronic (6) Congestive heart failure: Code(s): I50.9 - Heart failure, unspecified Status: Chronic (7) Coronary artery disease: Qualifiers: Coronary Disease-Associated Artery/Lesion type: [place] artery [place] vs. transplanted heart: [place] heart Associated angina: without angina Qualified Code(s): I25.10 - Atherosclerotic heart disease of [place] coronary artery without angina pectoris Code(s): I25.10 - Atherosclerotic heart disease of [place] coronary artery without angina pectoris Status: Chronic Plan # Acute on chronic congestive heart failure diuresis with IV echo recently with moderate LV enlargement grade 2 diastolic dysfunction EF 60% basal inferior hypokinesis. BNP and 198 which is much improved from previous level. Mild hypoalbuminemia. Chest x-ray findings with extensive bilateral calcified pleural plaques consistent with prior asbestos exposure further evaluate this with CT chest CT chest with chronic fibrotic changes likely prior asbestos exposure as reported in his history he is to follow-up with Dr. 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 On tamsulosin # Coronary artery disease on aspirin beta-kirti and statin # Hypertension stable blood pressure # Mild anemia # hypothyroidism levothyroxine # elevated liver enzymes stable liver ultrasound without significant abnormality # Code status discussed with the patient wants to be do not resuscitate will change the order Subjective Date/time seen: 12/08/22 13:55 Interval history: Feeling better. Still tired and short of breath with exertion. Leg swelling has improved. Pettit in place. Review of Systems Review of Systems: All systems reviewed & are unremarkable except as noted in HPI and below Exam Narrative: ?APPEARANCE:? patient appears uncomfortable Head: atraumatic. Normocephalic EYES:? EOMI, NOSE: Atraumatic NECK: Trachea midline RESPIRATORY: No increased rate of breathing scattered crackles CARDIOVASCULAR: RRR, pitting edema of the lower extremities up to mid knee today ABDOMINAL:? abdomen is distended but nontender, no guarding or rebound MUSCULOSKELETAl: No obvious deformities NEURO: Alert. Moving 4/4 extremities SKIN:: Warm, dry. Normal color PSYCHIATRIC: Normal affect Objective Data Vital Signs Vital Signs: Vital Signs - 24 hr 12/07/22 14:00 12/07/22 16:00 12/07/22 20:00 Temperature 98.7 F Pulse Rate 88 100 100 Respiratory Rate 18 Blood Pressure 118/58 L Pulse Oximetry 98 Oxygen Delivery 12/07/22 20:00 12/07/22 21:59 12/08/22 00:00 Temperature 98.0 F Pulse Rate 100 92 102 H Respiratory Rate 18 20 Blood Pressure 101/60 Pulse Oximetry 98 92 Oxygen Delivery Room Air 12/08/22 04:00 12/08/22 06:00 12/08/22 09:1
[2022-12-08] MEDS: TAMSULOSIN HCL 0.4 MG CAPSULE PO (20:33)
[2022-12-08] MEDS: ATORVASTATIN 40 MG TABLET 80 MG PO (20:33)
[2022-12-09] VITALS (11 sets, daily range): BP systolic 85–122; BP diastolic 44–59; PULSE 72–96; RESP 17–23; TEMP 36.2–37.6; O2SAT 92–100
[2022-12-09] MEDS: LEVOTHYROXINE SODIUM 25 MCG TABLET PO (05:46)
[2022-12-09 06:47] LABS: Basophils Percent Auto 0.2 % (0.2-1.2); Eosinophils Absolute Auto 0.2 K/mm3 (0-0.3); Eosinophils Percent Auto 2.4 % (0-4.4); Immature Granulocyte Absolute 0.08 K/mm3 (0.00-0.031); Immature Granulocyte Percent A 1.3 % (0-0.5); Lymphocytes Absolute Auto 1.64 K/mm3 (0.9-3.2); Lymphocytes Percent Auto 25.9 % (18.3-44.2); Mean Corpuscular HGB Conc 32.2 g/dl (32-36); Mean Corpuscular Hemoglobin 27.9 pg (26-34); Mean Corpuscular Volume 86.9 fl (80-100); Monocytes Absolute Auto 0.5 K/mm3 (0.1-0.6); Monocytes Percent Auto 7.9 % (2.6-8.5); Neutrophils Percent Auto 62.3 % (45.5-73.1); Platelet Count Result 119 k/mm3 (150-375); Red Blood Count 2.29 M/mm3 (4.6-6.20); White Blood Count 6.3 K/mm3 (4.5-10.0)
[2022-12-09 06:50] LABS: Hematocrit 19.9 % (42.0-52.0); Hemoglobin 6.4 g/dL (14.0-18.0)
--- NOTE | 2022-12-09 06:58 | PC.NURSE ---
Critical value of Hgb 6.[address] Gore notified. 1 uPRBC and Protonix 40mg IV BID ordered. Will continue to monitor.
[2022-12-09 07:00] LABS: Alanine Aminotransferase 29 U/L (6-50); Albumin Level 2.4 g/dL (3.5-5.1); Alkaline Phosphatase 92 U/L (38-126); Anion Gap 1 mmol/L (8-16); Aspartate Amino Transferase 29 U/L (17-59); Bilirubin,Total 0.6 mg/dL (0.2-1.3); Blood Urea Nitrogen 21 mg/dL (9-20); Calcium 7.1 mg/dL (8.4-10.2); Carbon Dioxide 32 mmol/L (22-30); Chloride 101 mmol/L (98-107); Estimated CRCL calculation 76 ml/min; Estimated Glomerular Filt Rate > 60; Glucose 97 mg/dL (65-110); Potassium 3.6 mmol/L (3.4-5.0); Sodium 134 mmol/L (137-145)
[2022-12-09] MEDS: FLUTICASONE/UMECLIDIN/VILANTER 100-62.5-25 MCG ELLIPTA 1 PUFF INHALATION (07:25)
[2022-12-09] MEDS: ASPIRIN 81 MG ENTERIC TABLET PO (08:47)
[2022-12-09] MEDS: METOPROLOL SUCCINATE EXT REL 25 MG TABCR PO (08:47)
[2022-12-09] MEDS: lisinopriL 10 MG TABLET PO (08:47)
[2022-12-09] MEDS: FUROSEMIDE INJ 40 MG/4 ML VIAL IV PUSH ×2 (08:47→17:59)
[2022-12-09] MEDS: PANTOPRAZOLE SODIUM IV 40 MG VIAL IV PUSH ×2 (08:51→20:16)
[2022-12-09] MEDS: SODIUM CHLORIDE 0.9% IV 250 ML 30 ML IV CONT (10:18)
--- NOTE | 2022-12-09 11:22 | PCPTNOTE ---
Attempted PT treatment, pt is currently getting blood. Pt requested that therapist return after he is done getting blood. RN aware
--- NOTE | 2022-12-09 13:58 | PCPTNOTE ---
Attempted PT treatment (pt blood transfusion completed), pt refused due to blood pressure being too low and not feeling well.
--- NOTE | 2022-12-09 18:33 | PM.IMPN ---
Progress Note: A&P Assessment and Plan (1) Fluid overload: Code(s): E87.70 - Fluid overload, unspecified Status: Acute (2) Acute urinary retention: Code(s): R33.8 - Other retention of urine Status: Acute (3) Hypothyroidism: Qualifiers: Hypothyroidism type: acquired Qualified Code(s): E03.9 - Hypothyroidism, unspecified Code(s): E03.9 - Hypothyroidism, unspecified Status: Chronic (4) Hypertension: Qualifiers: Hypertension type: primary hypertension Qualified Code(s): I10 - Essential (primary) hypertension Code(s): I10 - Essential (primary) hypertension Status: Chronic (5) Chronic obstructive pulmonary disease: Code(s): J44.9 - Chronic obstructive pulmonary disease, unspecified Status: Chronic (6) Congestive heart failure: Code(s): I50.9 - Heart failure, unspecified Status: Chronic (7) Coronary artery disease: Qualifiers: Coronary Disease-Associated Artery/Lesion type: [place] artery [place] vs. transplanted heart: [place] heart Associated angina: without angina Qualified Code(s): I25.10 - Atherosclerotic heart disease of [place] coronary artery without angina pectoris Code(s): I25.10 - Atherosclerotic heart disease of [place] coronary artery without angina pectoris Status: Chronic Plan # Acute on chronic congestive heart failure diuresis with IV echo recently with moderate LV enlargement grade 2 diastolic dysfunction EF 60% basal inferior hypokinesis. BNP and 198 which is much improved from previous level. Mild hypoalbuminemia. 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 On tamsulosin # Coronary artery disease on aspirin beta-kirti and statin # Hypertension mildly hypotensive will hold lisinopril continue metoprolol with hold parameters. Lasix lowered to 20 mg b.i.d. as tolerated 40s systolic less than 100 add albumin # Mild anemia with worsening. Baseline hemoglobin around 10. Down to 6. No obvious signs of bleeding. Check FOBT. Start Protonix. Mildly hypotensive will hold his blood pressure medication # hypothyroidism levothyroxine # elevated liver enzymes stable liver ultrasound without significant abnormality # Code status discussed with the patient wants to be do not resuscitate will change the order Subjective Date/time seen: 12/09/22 18:33 Interval history: H&H low this morning. Received 1 unit of packed red blood cell. Stool is darker. Denies any abdominal pain nausea vomiting. Leg swelling has improved. Shortness of breath with exertion present. No hematuria reported. Pettit in place Review of Systems Review of Systems: All systems reviewed & are unremarkable except as noted in HPI and below Exam Narrative: ?APPEARANCE:? patient appears uncomfortable Head: atraumatic. Normocephalic EYES:? EOMI, NOSE: Atraumatic NECK: Trachea midline RESPIRATORY: No increased rate of breathing scattered crackles CARDIOVASCULAR: RRR, pitting edema of the lower extremities improving ABDOMINAL:? abdomen is distended but nontender, no guarding or rebound MUSCULOSKELETAl: No obvious deformities NEURO: Alert. Moving 4/4 extremities SKIN:: Warm, dry. Normal color PSYCHIATRIC: Normal affect Objective Data Vital Signs Vital Signs
[2022-12-09 20:02] LABS: Hematocrit 23.9 % (42.0-52.0); Hemoglobin 7.9 g/dL (14.0-18.0)
[2022-12-09 20:09] LABS: Lactate Dehydrogenase 231 U/L (120-246)
[2022-12-09] MEDS: ATORVASTATIN 40 MG TABLET 80 MG PO (20:16)
[2022-12-09 20:38] LABS: Iron 55 ug/dL (49-181)
[2022-12-09 20:47] LABS: Percent Iron Saturation 29 % (20-50)
[2022-12-09 21:16] LABS: Folic Acid 9.7 ng/mL (2.76->20)
[2022-12-09] MEDS: ALBUMIN HUMAN 25% 12.5 GM/50ML 50 ML IVPB (23:35)
[2022-12-10] VITALS (7 sets, daily range): BP systolic 91–140; BP diastolic 50–74; PULSE 84–90; RESP 16–20; TEMP 36.4–36.6; O2SAT 92–98
[2022-12-10 02:42] LABS: Basophils Percent Auto 0.2 % (0.2-1.2); Eosinophils Absolute Auto 0.2 K/mm3 (0-0.3); Eosinophils Percent Auto 2.9 % (0-4.4); Hematocrit 24.3 % (42.0-52.0); Immature Granulocyte Absolute 0.06 K/mm3 (0.00-0.031); Lymphocytes Absolute Auto 1.49 K/mm3 (0.9-3.2); Lymphocytes Percent Auto 25.2 % (18.3-44.2); Mean Corpuscular HGB Conc 32.9 g/dl (32-36); Mean Corpuscular Hemoglobin 29.1 pg (26-34); Mean Corpuscular Volume 88.4 fl (80-100); Mean Platelet Volume 9.6 fl (7.4-10.4); Monocytes Absolute Auto 0.5 K/mm3 (0.1-0.6); Neutrophils Absolute Auto 3.7 K/mm3 (1.3-6.7); Neutrophils Percent Auto 62.7 % (45.5-73.1); Platelet Count Result 116 k/mm3 (150-375); Red Blood Count 2.75 M/mm3 (4.6-6.20); Red Cell Distribution Width 14.8 % (11.5-14.5); White Blood Count 5.9 K/mm3 (4.5-10.0)
[2022-12-10 02:55] LABS: Alanine Aminotransferase 29 U/L (6-50); Albumin Level 2.7 g/dL (3.5-5.1); Alkaline Phosphatase 100 U/L (38-126); Anion Gap 3 mmol/L (8-16); Aspartate Amino Transferase 29 U/L (17-59); Blood Urea Nitrogen 15 mg/dL (9-20); Calcium 7.5 mg/dL (8.4-10.2); Carbon Dioxide 32 mmol/L (22-30); Chloride 99 mmol/L (98-107); Estimated CRCL calculation 76 ml/min; Estimated Glomerular Filt Rate > 60; Glucose 99 mg/dL (65-110); Magnesium 1.9 mg/dL (1.6-2.3); Potassium 3.5 mmol/L (3.4-5.0); Sodium 134 mmol/L (137-145)
[2022-12-10] MEDS: LEVOTHYROXINE SODIUM 25 MCG TABLET PO (05:41)
[2022-12-10] MEDS: ALBUMIN HUMAN 25% 12.5 GM/50ML 50 ML IVPB ×3 (05:41→18:10)
[2022-12-10] MEDS: METOPROLOL SUCCINATE EXT REL 25 MG TABCR PO (09:14)
[2022-12-10] MEDS: FUROSEMIDE INJ 40 MG/4 ML VIAL 20 MG IV PUSH ×2 (09:15→18:10)
[2022-12-10] MEDS: PANTOPRAZOLE SODIUM IV 40 MG VIAL IV PUSH ×2 (09:15→20:38)
[2022-12-10 10:52] LABS: Hematocrit 26.7 % (42.0-52.0); Hemoglobin 8.7 g/dL (14.0-18.0)
--- NOTE | 2022-12-10 14:02 | PM.IMPN ---
Progress Note: A&P Assessment and Plan (1) Fluid overload: Code(s): E87.70 - Fluid overload, unspecified Status: Acute (2) Acute urinary retention: Code(s): R33.8 - Other retention of urine Status: Acute (3) Hypothyroidism: Qualifiers: Hypothyroidism type: acquired Qualified Code(s): E03.9 - Hypothyroidism, unspecified Code(s): E03.9 - Hypothyroidism, unspecified Status: Chronic (4) Hypertension: Qualifiers: Hypertension type: primary hypertension Qualified Code(s): I10 - Essential (primary) hypertension Code(s): I10 - Essential (primary) hypertension Status: Chronic (5) Chronic obstructive pulmonary disease: Code(s): J44.9 - Chronic obstructive pulmonary disease, unspecified Status: Chronic (6) Congestive heart failure: Code(s): I50.9 - Heart failure, unspecified Status: Chronic (7) Coronary artery disease: Qualifiers: Coronary Disease-Associated Artery/Lesion type: [place] artery [place] vs. transplanted heart: [place] heart Associated angina: without angina Qualified Code(s): I25.10 - Atherosclerotic heart disease of [place] coronary artery without angina pectoris Code(s): I25.10 - Atherosclerotic heart disease of [place] coronary artery without angina pectoris Status: Chronic Plan # Acute on chronic congestive heart failure diuresis with IV echo recently with moderate LV enlargement grade 2 diastolic dysfunction EF 60% basal inferior hypokinesis. BNP and 198 which is much improved from previous level. Mild hypoalbuminemia. 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 Leg swelling has much improved # Recent right upper lobe pneumonia finished antibiotic course chest x-ray with improved consultation WBC count normal sputum culture with MSSA # COPD no evidence of exacerbation continue bronchodilators as ordered # Recent LARRY with creatinine up to 2 creatinine improved currently stable # BPH with acute urinary retention urinary catheter placed recent admission with the same need follow-up with urology as an outpatient basis. On tamsulosin which has now been held due to hypotension # Coronary artery disease on aspirin beta-kirti and statin # Hypertension mildly hypotensive will hold lisinopril continue metoprolol with hold parameters. Lasix lowered to 20 mg b.i.d. as tolerated 40s systolic less than 100 add albumin. # Mild anemia with worsening. Baseline hemoglobin around 10. Down to 6. No obvious signs of bleeding Initially however now patient reports dark stool. FOBT has not been sent. Rectalexam with dark colored stool H&H is stable since transfusion likely the bleeding has stopped. Will consult GI continue on PPI as ordered # hypothyroidism levothyroxine # elevated liver enzymes stable liver ultrasound without significant abnormality # Code status discussed with the patient wants to be do not resuscitate will change the order Subjective Date/time seen: 12/10/22 14:02 Interval history: H&H remained stable since transfusion. Reports dark stool. Recurrent get the sample tested out for FOBT again. Rectal exam performed with dark- stool noted. Does not have any dizziness or lightheadedness. EGD long time ago. Aspirin on hold on PPI b.i.d. blood pressure is improved rash in the lower legs. Leg swelling has improved shortness of breath is about back to his baseline. He is always short of breath with minimal exertion due to his underlying COPD. Review of Systems Review of Systems: All systems reviewed & are unremarkable except as noted in HPI and below Exam Narrative: ?APPEARANCE:? patient appears u
[2022-12-10 19:04] LABS: Hematocrit 23.7 % (42.0-52.0); Hemoglobin 7.8 g/dL (14.0-18.0)
[2022-12-10] MEDS: ATORVASTATIN 40 MG TABLET 80 MG PO (20:37)
[2022-12-10] MEDS: HYDROCORTISONE 1% 30 GM CREAM 1 APPLIC TOPICAL (20:38)
[2022-12-11] VITALS (8 sets, daily range): BP systolic 83–150; BP diastolic 55–82; PULSE 74–95; RESP 16–30; TEMP 36.2–36.6; O2SAT 93–99
[2022-12-11] MEDS: ALBUMIN HUMAN 25% 12.5 GM/50ML 50 ML IVPB ×3 (00:17→12:53)
[2022-12-11] MEDS: LEVOTHYROXINE SODIUM 25 MCG TABLET PO (05:56)
[2022-12-11 06:49] LABS: Basophils Percent Auto 0.4 % (0.2-1.2); Eosinophils Absolute Auto 0.2 K/mm3 (0-0.3); Eosinophils Percent Auto 3.8 % (0-4.4); Hematocrit 23.6 % (42.0-52.0); Hemoglobin 7.6 g/dL (14.0-18.0); Immature Granulocyte Absolute 0.05 K/mm3 (0.00-0.031); Immature Platelet Fraction Pct 3.8 % (0.9-11.2); Lymphocytes Percent Auto 22.8 % (18.3-44.2); Mean Corpuscular HGB Conc 32.2 g/dl (32-36); Mean Corpuscular Hemoglobin 28.9 pg (26-34); Mean Corpuscular Volume 89.7 fl (80-100); Mean Platelet Volume 9.8 fl (7.4-10.4); Monocytes Absolute Auto 0.5 K/mm3 (0.1-0.6); Monocytes Percent Auto 9.3 % (2.6-8.5); Neutrophils Absolute Auto 3.3 K/mm3 (1.3-6.7); Neutrophils Percent Auto 62.7 % (45.5-73.1); Platelet Count Result 145 k/mm3 (150-375); Red Blood Count 2.63 M/mm3 (4.6-6.20); Red Cell Distribution Width 15.2 % (11.5-14.5); White Blood Count 5.3 K/mm3 (4.5-10.0)
[2022-12-11 07:17] LABS: Iron 24 ug/dL (49-181)
[2022-12-11 07:18] LABS: Alanine Aminotransferase 25 U/L (6-50); Alkaline Phosphatase 94 U/L (38-126); Anion Gap 3 mmol/L (8-16); Aspartate Amino Transferase 24 U/L (17-59); Bilirubin,Total 0.8 mg/dL (0.2-1.3); Blood Urea Nitrogen 10 mg/dL (9-20); Calcium 7.6 mg/dL (8.4-10.2); Carbon Dioxide 33 mmol/L (22-30); Chloride 100 mmol/L (98-107); Estimated CRCL calculation 76 ml/min; Estimated Glomerular Filt Rate > 60; Glucose 101 mg/dL (65-110); Magnesium 1.9 mg/dL (1.6-2.3); Potassium 3.5 mmol/L (3.4-5.0); Sodium 136 mmol/L (137-145)
[2022-12-11 07:27] LABS: Percent Iron Saturation 13 % (20-50)
--- NOTE | 2022-12-11 08:03 | WPDGICN ---
Assessment and Plan Assessment and plan (1) Anemia: Code(s): D64.9 - Anemia, unspecified Status: Acute Assessment and Plan: Patient with normochromic normocytic anemia on presentation. This may contribute to his underlying Congestive. Patient does report dark stools. Because of this there is concern over bleeding. An EGD will be arranged. Stool home occult is pending. There are other possible etiologies to dark stools. Further recommendations may be after endoscopy. (2) CHF (congestive heart failure): Code(s): I50.9 - Heart failure, unspecified Status: Acute Assessment and Plan: Patient reports no short of breath and less edema after diuresis. Workup in progress. This may high output failure because of his anemia. GI Consult Note Consult date/time: 12/11/22 08:03 Reason for consult: Anemia HPI: Anibal Zaidi is a 82 year old male I have been asked see because of anemia. Patient presented to the hospital with congestive heart failure and significant peripheral edema. This is improved with diuresis. At the time of admission patient was found to have a rather profound anemia. Patient gave a history of somewhat dark stools in the recent past. No obvious bleeding was noted. Stool Hemoccult not yet obtain. Patient's hemoglobin this morning 7.6 appears stable but low. EGD the is requested to exclude possible ulcer disease. Review of Systems Review of Systems: Anil view of systems noncontributory. [facility] Past Medical History Medical History Benign prostatic hyperplasia Chronic obstructive pulmonary disease Congestive heart failure Coronary artery disease Hyperlipidemia Hypertension Hypothyroidism Surgical History Surgical History History of bilateral carpal tunnel release History of coronary artery bypass graft x 6 History of open reduction and internal fixation (ORIF) procedure Repair left upper extremity fracture. Family History Family History Other Heart disease Hypertension Social History Social History Social History: Surrogate medical decision maker: Janny Zaidi, spouse. Code status: Full code. Smoking packs per day: 1 Smoking cigarettes per day: 20.0 Smoking status: Former smoker Tobacco type: cigarettes Smoking end date: 08/17/11 Alcohol intake: never Substance use: never Substance use type: does not use Lack of Transportation: No Lack of Food: Never True Current Housing: I Have Housing Concerned About Future Housing: No Difficulty Paying Gas/Electric Bills: No Difficulty Paying for Meds: No Currently Unemployed: No Education: High School Diploma/GED Difficulty w/ Childcare or Family Care: No Additional living arrangements comments: Lives with in [place]. 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 Spiritual care concerns: No Meds Home Medications and Allergies Home Medications Medication Instructions Recorded Confirmed Type albuterol sulfate 90 mcg/actuation 2 puff inhalation QID PRN 11/19/22 12/07/22 History aerosol inhaler Shortness Of Breath aspirin 81 mg tablet,delayed 81 mg PO DAILY 11/19/22 12/07/22 History release atorvastatin 80 mg tablet 80 mg PO HS 11/19/22 12/07/22 History fluticasone fur. 100 mcg-umeclid 1 inh inhalation DAILY 11/19/22 12/07/22 History 62.5 mcg-vilant 25 mcg inhalat.powder (Trelegy Ellipta) furosemide 20 mg tablet 20 mg PO DAILY 11/19/22 12/07/22 History levothyroxine 25 mcg capsule 25 mcg PO DAILY 11/19/22 12/07/22 History lisinopril 10 mg tablet 10 mg PO DAILY 11/19/22 12/07/22 History metoprolol succinate 25 mg 25 mg PO DAILY 11/19/22 12/07/22 History tablet,extended release 24 hr levofloxaci
[2022-12-11 08:18] LABS: Folic Acid 11.6 ng/mL (2.76->20)
--- NOTE | 2022-12-11 09:17 | PM.IMPN ---
Progress Note: A&P Assessment and Plan (1) Anemia: Code(s): D64.9 - Anemia, unspecified Status: Acute Assessment and Plan: Mild anemia with worsening. Hemoglobin around 10 last admission but dropped to 6.4 this admission consistent with chronic anemia with acute blood loss anemia. No obvious signs of bleeding Initially however patient reports dark stool. FOBT was positive. He was transfused 1U PRBC on 12/09. H&H is stable since transfusion likely the bleeding has stopped. Continue PPI. GI consult. EGD planned EGD showing acute duodenal ulcer felt the likely cause of the acute blood loss. (2) Hypertension: Qualifiers: Hypertension type: primary hypertension Qualified Code(s): I10 - Essential (primary) hypertension Code(s): I10 - Essential (primary) hypertension Status: Chronic Assessment and Plan: Patient's blood pressure was reviewed on 12/11 Blood pressure is soft felt related to over-diuresis given the clear CT 4 days ago Lisinopril on hold. Metoprolol with parameters. Lasix stopped today. Stop albumin. (3) Congestive heart failure: Code(s): I50.9 - Heart failure, unspecified Status: Chronic Assessment and Plan: Acute on chronic congestive heart failure exacerbation. Presents with SOB. BNP only 198. CXR showing improvement in the extensive infiltrates from October. Echo EF 60%, moderate LV enlargement, grade 2 diastolic dysfunction with basal inferior hypokinesis. 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 Treated with Lasix IV 20 mg b.i.d.. Leg swelling has much improved. Change to oral Lasix in the morning. (4) Pneumonia: Code(s): J18.9 - Pneumonia, unspecified organism Status: Acute Assessment and Plan: Recent right upper lobe pneumonia last admission and has finished antibiotic course. Sputum grew MSSA. Repeat CXR with improvement. CT chest showing no acute process. pneumonia has resolved. (5) Chronic obstructive pulmonary disease: Code(s): J44.9 - Chronic obstructive pulmonary disease, unspecified Status: Chronic Assessment and Plan: Stable. No evidence of COPD exacerbation. Continue Trelegy. (6) LARRY (acute kidney injury): Code(s): N17.9 - Acute kidney failure, unspecified Status: Acute Assessment and Plan: Recent LARRY with creatinine up to 2.0 In October. Creatinine was normal on admission has remained normal. Continue to follow. (7) Acute urinary retention: Code(s): R33.8 - Other retention of urine Status: Acute Assessment and Plan: patient with BPH and acute urinary retention. Urinary catheter was placed. Same issue on recent admission. Will need follow-up with urology as an outpatient basis. On tamsulosin which has now been held due to hypotension (8) Benign prostatic hyperplasia: Qualifiers: Lower urinary tract symptom detail: urinary retention Lower urinary tract symptom presence: symptoms present Qualified Code(s): N40.1 - Benign prostatic hyperplasia with lower urinary tract symptoms; R33.8 - Other retention of urine Code(s): N40.0 - Benign prostatic hyperplasia without lower urinary tract symptoms Status: Chronic Assessment and Plan: As above (9) Coronary artery disease: Qualifiers: Associated angina: without angina Coronary Disease-Associated Artery/Lesion type: [place] artery [place] vs. transplanted heart: [place] heart Qualified Code(s): I25.10 - Atherosclerotic heart disease of [place] coronary artery without angina pectoris Code(s): I25.10 - Atherosclerotic heart disease of [place] coronary artery without angina pectoris Status: Chronic Assessment and Plan: Coronary artery disease on beta-kirti and statin. ASA on hold due to anemia. (10) Hypothyroidism: Qualifiers: Hypothyroidism type: acqu
[2022-12-11] MEDS: FLUTICASONE/UMECLIDIN/VILANTER 100-62.5-25 MCG ELLIPTA 1 PUFF INHALATION (09:23)
[2022-12-11] MEDS: PANTOPRAZOLE SODIUM IV 40 MG VIAL IV PUSH ×2 (09:26→20:32)
[2022-12-11] MEDS: HYDROCORTISONE 1% 30 GM CREAM 1 APPLIC TOPICAL ×2 (09:26→20:35)
[2022-12-11] MEDS: METOPROLOL SUCCINATE EXT REL 25 MG TABCR PO (09:26)
[2022-12-11] MEDS: FUROSEMIDE INJ 40 MG/4 ML VIAL 20 MG IV PUSH (09:26)
[2022-12-11 09:40] LABS: IFOB Positive Control Positive; Immunochemical Fecal Occult Bl Positive (N)
--- NOTE | 2022-12-11 10:22 | WPDANESEPPF ---
Anes - Initial Pre Proc Eval Procedure: Operation Date: 12/11/22 11:30 Proposed Procedures p Esophagogastroduodenoscopy - Gregory Whiteside MD Date/Time: 12/11/22 10:22 Surgeon: Amberly Pedraza MD Pre Op Diagnosis: CHF Patient Data Age: 82 Gender: M Height: 1.78 m Weight: 99.337 kg Last Vital Signs Temp 36.4 C L 12/11/22 06:04 Pulse 91 12/11/22 06:04 Resp 16 12/11/22 06:04 BP 120/80 12/11/22 06:04 Pulse Ox 93 12/11/22 09:24 O2 Del Method Room Air 12/11/22 09:24 Allergies Allergy/AdvReac Type Severity Reaction Status Date / Time No Known Allergies Allergy Mild Verified 12/07/22 06:27 Home Medications Medication Instructions Recorded Confirmed Type albuterol sulfate 90 mcg/actuation 2 puff inhalation QID PRN 11/19/22 12/07/22 History aerosol inhaler Shortness Of Breath aspirin 81 mg tablet,delayed 81 mg PO DAILY 11/19/22 12/07/22 History release atorvastatin 80 mg tablet 80 mg PO HS 11/19/22 12/07/22 History fluticasone fur. 100 mcg-umeclid 1 inh inhalation DAILY 11/19/22 12/07/22 History 62.5 mcg-vilant 25 mcg inhalat.powder (Trelegy Ellipta) furosemide 20 mg tablet 20 mg PO DAILY 11/19/22 12/07/22 History levothyroxine 25 mcg capsule 25 mcg PO DAILY 11/19/22 12/07/22 History lisinopril 10 mg tablet 10 mg PO DAILY 11/19/22 12/07/22 History metoprolol succinate 25 mg 25 mg PO DAILY 11/19/22 12/07/22 History tablet,extended release 24 hr levofloxacin 750 mg tablet 750 mg PO DAILY #1 tablet 11/27/22 12/07/22 Rx tamsulosin 0.4 mg capsule 0.4 mg PO HS #30 caps 11/27/22 12/07/22 Rx Laboratory Tests 12/10/22 12/10/22 12/11/22 10:36 18:51 06:28 WBC RBC Hgb 8.7 g/dL L g/dL 7.8 g/dL L g/dL (14.0-18.0) (14.0-18.0) Hct 26.7 % L % 23.7 % L % (42.0-52.0) (42.0-52.0) MCV MCH MCHC RDW Plt Count MPV Immature Gran % (Auto) Neut % (Auto) Lymph % (Auto) [place] % (Auto) Eos % (Auto) Baso % (Auto) Lymph # (Auto) [place] # (Auto) Eos # (Auto) Baso # (Auto) Abs Immat Gran (auto) Absolute Neuts (auto) Absolute Nucleated RBC Nucleated RBC % % Immature Plt Fraction Sodium 136 mmol/L L mmol/L (137-145) Potassium 3.5 mmol/L mmol/L (3.4-5.0) Chloride 100 mmol/L mmol/L (98-107) Carbon Dioxide 33 mmol/L H mmol/L (22-30) Anion Gap 3 mmol/L L mmol/L (8-16) BUN 10 mg/dL D mg/dL (9-20) Creatinine 0.80 mg/dL mg/dL (0.7-1.3) Estim Creat Clear Calc 76 ml/min ml/min Estimated GFR > 60 (59 - ) Glucose 101 mg/dL mg/dL (65-110) Calcium 7.6 mg/dL L mg/dL (8.4-10.2) Magnesium 1.9 mg/dL mg/dL (1.6-2.3) Iron TIBC % Saturation Ferritin Total Bilirubin 0.8 mg/dL mg/dL (0.2-1.3) AST 24 U/L U/L (17-59) ALT 25 U/L U/L (6-50) Alkaline Phosphatase 94 U/L U/L (38-126) Total Protein 5.0 g/dL L g/dL (6.3-8.2) Albumin 3.0 g/dL L g/dL (3.5-5.1) Vitamin B12 595.0 pg/mL pg/mL (239-931) Folate 11.6 ng/mL ng/mL (2.76->20) Stl Occult Blood (IFOB) 12/11/22 12/11/22 12/11/22 06:29 06:29 09:12 WBC 5.3 K/mm3 K/mm3 (4.5-10.0) RBC 2.63 M/mm3 L M/mm3 (4.6-6.20) Hgb 7.6 g/dL L g/dL (14.0-18.0) Hct 23.6 % L % (42.0-52.0) MCV 89.7 fl fl (80-100) MCH 28.9 pg pg (26-34) MCHC 32.2 g/dl g/dl (32-36) RDW 15.2 % H % (11.5-14.5) Plt Count 145 k/mm3 L k/mm3 (150-375) MPV 9.8 fl fl (7.4-10.4) Immature Gran % (Auto
[2022-12-11] MEDS: LACTATED RINGERS 1,000 ML 150 ML IV CONT (10:32)
[2022-12-11] MEDS: ATORVASTATIN 40 MG TABLET 80 MG PO (20:32)
[2022-12-12] VITALS (8 sets, daily range): BP systolic 122–153; BP diastolic 73–82; PULSE 86–110; RESP 16–22; TEMP 36.1–36.6; O2SAT 86–98
[2022-12-12] MEDS: LEVOTHYROXINE SODIUM 25 MCG TABLET PO (06:11)
[2022-12-12 07:31] LABS: Hematocrit 24.2 % (42.0-52.0); Hemoglobin 7.8 g/dL (14.0-18.0); Immature Platelet Fraction Pct 4.4 % (0.9-11.2); Mean Corpuscular HGB Conc 32.2 g/dl (32-36); Mean Corpuscular Hemoglobin 28.7 pg (26-34); Mean Platelet Volume 9.8 fl (7.4-10.4); Platelet Count Result 137 k/mm3 (150-375); Red Blood Count 2.72 M/mm3 (4.6-6.20); Red Cell Distribution Width 15.5 % (11.5-14.5); White Blood Count 5.2 K/mm3 (4.5-10.0)
[2022-12-12 07:39] LABS: Anion Gap 1 mmol/L (8-16); Blood Urea Nitrogen 9 mg/dL (9-20); Calcium 7.8 mg/dL (8.4-10.2); Carbon Dioxide 32 mmol/L (22-30); Chloride 102 mmol/L (98-107); Estimated CRCL calculation 76 ml/min; Estimated Glomerular Filt Rate > 60; Glucose 97 mg/dL (65-110); Potassium 3.6 mmol/L (3.4-5.0); Sodium 135 mmol/L (137-145)
[2022-12-12] MEDS: FLUTICASONE/UMECLIDIN/VILANTER 100-62.5-25 MCG ELLIPTA 1 PUFF INHALATION (08:19)
[2022-12-12] MEDS: FUROSEMIDE 20 MG TABLET PO (08:55)
[2022-12-12] MEDS: PANTOPRAZOLE SODIUM IV 40 MG VIAL IV PUSH (08:55)
[2022-12-12] MEDS: METOPROLOL SUCCINATE EXT REL 25 MG TABCR PO (08:55)
[2022-12-12] MEDS: HYDROCORTISONE 1% 30 GM CREAM 1 APPLIC TOPICAL (08:57)
[2022-12-12] MEDS: FERROUS SULFATE 324 MG TABLET PO (11:32)
[2022-12-12] MEDS: FINASTERIDE 5 MG TABLET PO (11:32)
--- NOTE | 2022-12-12 11:44 | HOMEO2EVAL ---
Evaluation was performed at [facility] Home Oxygen Evaluation RC: Home Oxygen (O2) Evaluation Start: 12/12/22 10:27 Freq: ONCE Status: Active Protocol: RPE Activity Type Activity Date Activity User E-sign Co-sign Detail Recorded Client Recorded Date Recorded By Document 12/12/22 11:25 KIA [email or web address] 12/12/22 11:44 KIA Document 12/12/22 11:30 [email or web address] [email or web address] 12/12/22 11:44 KIA Document 12/12/22 11:32 [email or web address] [email or web address] 12/12/22 11:44 KIA Document 12/12/22 11:33 [email or web address] [email or web address] 12/12/22 11:44 KIA Document 12/12/22 11:40 [email or web address] 12/12/22 11:44 KIA 12/12/22 12/12/22 12/12/22 11:25 11:30 11:32 Home O2 Evaluation [Oxygen] -Test Phase Resting Exercise Exercise -Oxygen Delivery Room Air Room Air Nasal Cannula -Oxygen Flow Rate (L/min) 1 [Pulse Oximetry] -Pulse Oximetry (90-100 %) 94 86 L 87 L [Pulse Rate] -Pulse Rate (60-100 beats/min) 86 99 [Comments] -Home Oxygen Evaluation Comments [Charges] -Treatment Charges O2 Evaluation - Inpatient 12/12/22 12/12/22 11:33 11:40 Home O2 Evaluation [Oxygen] -Test Phase Exercise Resting -Oxygen Delivery Nasal Cannula Room Air -Oxygen Flow Rate (L/min) 2 [Pulse Oximetry] -Pulse Oximetry (90-100 %) 91 94 [Pulse Rate] -Pulse Rate (60-100 beats/min) 110 H 92 [Comments] -Home Oxygen Evaluation Comments Patient requires 2 liter home O2 with activity [Charges] -Treatment Charges
--- NOTE | 2022-12-12 13:28 | WPDGIPROGNO ---
Progress Note: A&P Assessment and Plan (1) Duodenal ulcer: Code(s): K26.9 - Duodenal ulcer, unspecified as acute or chronic, without hemorrhage or perforation Status: Acute Assessment and Plan: Patient found to have duodenal ulcer by endoscopy. Plan for continued pantoprazole 40mg p.o. daily. Avoid NSAIDs. Follow up with primary care service after discharge. Patient should stay on pantoprazole at least 2 months but likely should remain on this sometime subsequently. H pylori was negative. Patient denies any significant NSAID use. Okay to discharge today from GI perspective with primary care follow-up. (2) CHF (congestive heart failure): Code(s): I50.9 - Heart failure, unspecified Status: Acute Assessment and Plan: Patient admitted with congestive heart failure. Likely however output failure given his low hemoglobin at presentation. Currently appears corrected. He will need follow-up with the primary care service after discharge. Subjective Date/time seen: 12/12/22 13:28 Interval history: Patient doing well today. Tolerating diet. Denies abdominal pain. No evidence for active bleeding. Review of Systems Review of Systems: Review of systems noncontributory. Exam Narrative: Physical exam reveals patient to be alert. Vital signs stable. HEENT exam is unremarkable. Patient is anicteric. Lungs are clear. Heart without murmur. Abdomen bowel sounds present soft nontender with no organomegaly. Objective Data Vital Signs Vital Signs: Vital Signs - 24 hr 12/11/22 14:00 12/11/22 20:00 12/11/22 22:08 Temperature 97.3 F L 97.9 F Pulse Rate 86 85 Respiratory Rate 24 H 16 Blood Pressure 109/59 L 130/70 Pulse Oximetry 98 97 Oxygen Delivery Room Air Oxygen Flow Rate 12/12/22 05:34 12/12/22 08:20 12/12/22 11:25 Temperature 98 F Pulse Rate 87 86 Respiratory Rate 16 Blood Pressure 153/82 H Pulse Oximetry 98 91 94 Oxygen Delivery Room Air Room Air Oxygen Flow Rate 12/12/22 11:30 12/12/22 11:32 12/12/22 11:33 Temperature Pulse Rate 99 110 H Respiratory Rate Blood Pressure Pulse Oximetry 86 L 87 L 91 Oxygen Delivery Room Air Nasal Cannula Nasal Cannula Oxygen Flow Rate 1 2 12/12/22 11:40 Temperature Pulse Rate 92 Respiratory Rate Blood Pressure Pulse Oximetry 94 Oxygen Delivery Room Air Oxygen Flow Rate Intake/Output Intake/Output: Intake & Output 12/09/22 12/10/22 12/11/22 12/12/22 23:59 23:59 23:59 23:59 Intake Total 2750 2600 1930 1180 Output Total 3800 6301 3850 1650 [facility]1050 -3750 -1920 -470 Meds/Results Medications: Active Medications Generic Name Dose Route Start Last Admin Trade Name Freq PRN Reason Stop Dose Admin Albuterol 2 puff 12/07/22 13:45 Albuterol Sulfate (*Sp) Aerosol 1 Puff INHALATION QID PRN Shortness Of Breath Aspirin 81 mg 12/08/22 09:00 12/09/22 08:47 Aspirin 81 Mg Enteric Tablet PO 81 mg DAILY KAILA Administration Atorvastatin Calcium 80 mg 12/07/22 21:00 12/11/22 20:32 Atorvastatin 40 Mg Tablet PO 80 mg HS KAILA Administration Ferrous Sulfate 324 mg 12/12/22 11:00 12/12/22 11:32 Ferrous Sulfate 324 Mg Tablet PO 324 mg DAILY@0800 KAILA Administration Finasteride 5 mg 12/12/22 11:00 12/12/22 11:32 Finasteride 5 Mg Tablet PO 5 mg QAM KAILA Administration Fluticasone/Umeclidinium/Vilanterol 1 puff 12/08/22 09:00 12/12/22 08:19 Fluticasone/Umeclidin/Vilanter 100-62.5-25 Mcg Ellipta INHALATION 1 puff DAILY KAILA Administration Furosemide 20 mg 12/12/22 09:00 12/12/22 08:55 Furosemide 20 Mg Tablet PO 20 mg DAILY KAILA Administration Hydrocortisone 1 applic 12/10/22 21:00 12/12/22 08:57 Hydrocortisone 1% 30 Gm Cream TOPICAL 1 applic Q12HR KAILA Administration Levothyroxine Sodium 25 mcg 12/08/22 06:30 12/12/22 06:11 Levothyroxine Sodium 25 Mcg Tablet PO 25 mcg DAILY@0630 SC
--- NOTE | 2022-12-12 13:42 | PM.DS ---
DS: Admitting Diagnosis Discharge Date 12/12/22 Admitting Diagnosis Shortness of breath DS: Discharge Diagnosis Discharge Diagnosis (1) Anemia: Code(s): D64.9 - Anemia, unspecified Status: Acute (2) Hypertension: Qualifiers: Hypertension type: primary hypertension Qualified Code(s): I10 - Essential (primary) hypertension Code(s): I10 - Essential (primary) hypertension Status: Chronic (3) Congestive heart failure: Code(s): I50.9 - Heart failure, unspecified Status: Chronic (4) Pneumonia: Code(s): J18.9 - Pneumonia, unspecified organism Status: Acute (5) Chronic obstructive pulmonary disease: Code(s): J44.9 - Chronic obstructive pulmonary disease, unspecified Status: Chronic (6) LARRY (acute kidney injury): Code(s): N17.9 - Acute kidney failure, unspecified Status: Acute (7) Acute urinary retention: Code(s): R33.8 - Other retention of urine Status: Acute (8) Benign prostatic hyperplasia: Qualifiers: Lower urinary tract symptom detail: urinary retention Lower urinary tract symptom presence: symptoms present Qualified Code(s): N40.1 - Benign prostatic hyperplasia with lower urinary tract symptoms; R33.8 - Other retention of urine Code(s): N40.0 - Benign prostatic hyperplasia without lower urinary tract symptoms Status: Chronic (9) Coronary artery disease: Qualifiers: Associated angina: without angina Coronary Disease-Associated Artery/Lesion type: [place] artery [place] vs. transplanted heart: [place] heart Qualified Code(s): I25.10 - Atherosclerotic heart disease of [place] coronary artery without angina pectoris Code(s): I25.10 - Atherosclerotic heart disease of [place] coronary artery without angina pectoris Status: Chronic (10) Hypothyroidism: Qualifiers: Hypothyroidism type: acquired Qualified Code(s): E03.9 - Hypothyroidism, unspecified Code(s): E03.9 - Hypothyroidism, unspecified Status: Chronic (11) Duodenal ulcer: Code(s): K26.9 - Duodenal ulcer, unspecified as acute or chronic, without hemorrhage or perforation Status: Acute (12) Acute blood loss anemia: Code(s): D62 - Acute posthemorrhagic anemia Status: Acute DS: Summary Hospital Course Reason for hospitalization: 82yo male with COPD, CAD and CHF here for shortness of breath. Please see H&P for details Hospital Course: Patient with SOB and found to have acute on chronic congestive heart failure exacerbation.?BNP only 198. CXR showing improvement in the extensive infiltrates from October. Echo EF 60%, moderate LV enlargement, grade 2 diastolic dysfunction with basal inferior hypokinesis. 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 Treated with Lasix IV 20 mg b.i.d. then changed to oral. SOB also felt related to the anemia. He has chronic mild anemia with worsening. Hemoglobin around 10 last admission but dropped to 6.4 this admission consistent with chronic anemia with?acute blood loss anemia.? No obvious signs of bleeding?but stool guaiac positive. Patient reported dark stool.? He was transfused 1U PRBC on 12/09. H&H has gloria stable since transfusion likely the bleeding has stopped.? Treated with PPI. EGD showing acute duodenal ulcer felt the likely cause of the acute blood loss. Blood pressure is soft felt related to over-diuresis given the clear CT chest. Lisinopril was on hold but tolerating Metoprolol. Albumin was added. Patient with BPH?and acute urinary retention. Urinary catheter was placed.? Same issue on recent admission. He will need follow-up with urology as an outpatient basis. On tamsulosin which was held due to hypotension. Proscar started (patient had been on this in the past but did not follow up with his urologist). He was noted to be hypoxic after exertion. Home O2 evaluation showing that he needs 2L
--- NOTE | 2022-12-12 14:54 | PCRCNOTE ---
HOME O2 EVAL DONE, SET UP WITH [facility], CONTACT SHANNA . TANK IN ROOM FOR TRANSPORT HOME. 2 LITERS WITH ACTIVITY
[2022-12-15 03:41] LABS: Haptoglobin 274 mg/dL (43-212)
== END 2022-12-12 15:20 | disposition home or self-care (01) | DRG 291 ==
LOC: ANHED 05:04 → ANH3MEDSUR 05:59
PROVIDERS: Internal Medicine; Internal Medicine Gastroenterology; Admitting Provider Internal Medicine; Emergency Provider Emergency Medicine; PCP Internal Medicine; Visit Provider Internal Medicine
PROC: 0DJ08ZZ Inspection of Upper Intestinal Tract, Via Natural or Artificial Opening Endoscopic (ICD-10-PCS; CPT 43235; principal; 2022-12-11 11:30)
DX: I11.0 Hypertensive heart disease with heart failure (principal); I50.33 Acute on chronic diastolic (congestive) heart failure; N17.9 Acute kidney failure, unspecified; D62 Acute posthemorrhagic anemia; N40.1 Benign prostatic hyperplasia with lower urinary tract symptoms; R33.8 Other retention of urine; I25.10 Atherosclerotic heart disease of native coronary artery without angina pectoris; E03.9 Hypothyroidism, unspecified; K26.9 Duodenal ulcer, unspecified as acute or chronic, without hemorrhage or perforation; J44.9 Chronic obstructive pulmonary disease, unspecified; Z20.822 Contact with and (suspected) exposure to COVID-19; Z87.891 Personal history of nicotine dependence; Z79.899 Other long term (current) drug therapy
CPT/HCPCS: 36415; 36430; 51702; 71046; 71250; 80048; 80053; 81001; 82274; 82607; 82728; 82746; 83010; 83540; 83550; 83615; 83735; 83880; 84484; 85014; 85018; 85025; 85027; 85055; 85610; 85730; 86850; 86900; 86901; 86923; 87040; 87081; 87637; 93005; 94618; 94640; 96374; 96375; 96376; 97110; 97116; 97161; 97165; 97530; 97535; 99285; A9270; C9113; G0378; J1940; J2704; J7050; J7120; P9016; P9047